=== PATIENT | male | born 1940 | race Hispanic/Latino ===

== ENCOUNTER 2017-12-13 11:19 | Inpatient (IN) | payer OTHER, MEDICARE ==
[~2017-12-13] VITALS: Ht 177.8 cm; Wt 115.3 kg
[2017-12-13] MEDS ORDERED: LACTULOSE 20 GM/30 ML UDCUP PO PRN (12:30)
[2017-12-13] MEDS ORDERED: GUAIFENESIN-DM 200/20 MG 10 ML PO PRN (12:30)
[2017-12-13] MEDS ORDERED: POTASSIUM CHLORIDE 10% ELIXIR 20 MEQ/15 ML UDCUP PO PRN (12:30)
[2017-12-13] MEDS ORDERED: ACETAMINOPHEN 325 MG TAB PO PRN ×2 (12:30)
[2017-12-13] MEDS ORDERED: NITROGLYCERIN 0.4 MG SL TAB SL PRN (12:30)
[2017-12-13] MEDS ORDERED: POTASSIUM CHLORIDE 20MEQ/100ML 100 ML IV PRN (12:30)
[2017-12-13] MEDS ORDERED: LIDOCAINE HCL-MPF 1% 2ML VIAL IVP PRN (12:30)
[2017-12-13] MEDS ORDERED: HYDRALAZINE HCL 20 MG/ML VIAL IV PRN (12:30)
[2017-12-13] MEDS: LEVOFLOXACIN 500 MG/D5W 100 ML 100 ML IV SCH (12:30)
[2017-12-13] MEDS ORDERED: ONDANSETRON HCL 4 MG/2 ML VIAL IV PRN (12:30)
[2017-12-13] MEDS ORDERED: POTASSIUM CHLORIDE 20 MEQ ERTAB PO PRN (12:30)
[2017-12-13] MEDS ORDERED: MAG HYDROX/AL HYDROX/SIMETH ES 30 ML SUSP UDCUP PO PRN (12:30)
[2017-12-13] MEDS ORDERED: MORPHINE SULFATE 2 MG/ML 1ML SYG IV PRN (12:30)
[2017-12-13] MEDS ORDERED: MORPHINE SULFATE 4 MG/1ML SYG IV PRN (12:30)
[2017-12-13 13:05] LABS: HEMATOCRIT 36.4 % (42-54); MEAN CORPUSCULAR HEMOGLOBIN 28.3 pg (27.0-33.0); MEAN CORPUSCULAR HGB CONC 32.7 g/dL (32.0-36.0); MEAN CORPUSCULAR VOLUME 86.6 fL (79-99); PLATELET COUNT (AUTO) 445 K/uL (130-400); RED CELL DISTRIBUTION WIDTH 14.9 % (11.0-15.5); WHITE BLOOD COUNT (AUTO) 13.3 K/uL (4.8-10.8)
[2017-12-13 13:21] LABS: ALBUMIN 2.3 g/dL (3.5-5.0); BILIRUBIN,TOTAL 0.4 mg/dL (0.2-1.0); CREATININE 1.3 mg/dL (0.5-1.5); MAGNESIUM 1.5 mg/dL (1.80-2.40); POTASSIUM 4.7 mmol/L (3.5-5.1); TOTAL PROTEIN, SERUM 8.3 g/dL (6.0-8.3)
[2017-12-13 13:38] LABS: PROTHROMBIN TIME 30.8 SEC (9.6-11.6)
[2017-12-13 13:45] LABS: BAND NEUTROPHILS % (MANUAL) 1 % (0-2); LYMPHOCYTES % (MANUAL) 12 % (22-44); MAN.DIFF COMMENT-IMPRESSION MANUAL DIFFERENTIAL; MONOCYTES % (MANUAL) 5 % (2-9); SEGMENTED NEUTROPHILS % 82 % (40-70)
[2017-12-13] MEDS: CLINDAMYCIN 300 MG/D5W 50 ML 50 ML IV SCH ×2 (13:45→19:45)
[2017-12-13 13:46] LABS: PLATELET MORPHOLOGY COMMENT LARGE PLTS PRESENT
[2017-12-13] MEDS ORDERED: CLINDAMYCIN 300 MG/D5W 50 ML 50 ML IV ONE (14:31)
[2017-12-13] MEDS ORDERED: MAGNESIUM 2GM PREMIX 50ML 50 ML IV ONE (15:26)
[2017-12-13] MEDS: INSULIN HUMULIN R 100 UNIT/ML 3ML SQ SCH ×2 (16:30→21:00)
[2017-12-13] MEDS: GLIPIZIDE 5 MG TABLET PO SCH (16:30)
[2017-12-13] MEDS ORDERED: LEVOFLOXACIN 500 MG/D5W 100 ML 100 ML ONE (16:43)
[2017-12-13] MEDS ORDERED: INSULIN HUMULIN R 100 UNIT/ML 3ML ONE (18:00)
[2017-12-13 22:20] VITALS: BP 124/79
[2017-12-14] MEDS: METOPROLOL TARTRATE 50 MG TAB PO SCH ×3 (00:13→22:21)
[2017-12-14] MEDS: ATORVASTATIN CALCIUM 40 MG TABLET PO SCH ×2 (00:13→22:20)
[2017-12-14] MEDS: ACETAMINOPHEN-CODEINE 300/30MG TAB PO PRN ×2 (00:14→19:50)
[2017-12-14] MEDS ORDERED: CLINDAMYCIN 300 MG/D5W 50 ML 50 ML IV ONE (03:10)
[2017-12-14] MEDS ORDERED: SODIUM CHLORIDE 0.9% 500ML 500 ML IV ONE (03:16)
[2017-12-14] MEDS: CLINDAMYCIN 300 MG/D5W 50 ML 50 ML IV SCH ×4 (03:21→22:20)
[2017-12-14 03:45] VITALS: BP 100/65
[2017-12-14 04:14] LABS: CREATININE 1.3 mg/dL (0.5-1.5); POTASSIUM 4.6 mmol/L (3.5-5.1)
[2017-12-14 04:15] LABS: HEMATOCRIT 32.7 % (42-54); MEAN CORPUSCULAR HEMOGLOBIN 28.5 pg (27.0-33.0); MEAN CORPUSCULAR HGB CONC 32.9 g/dL (32.0-36.0); MEAN CORPUSCULAR VOLUME 86.7 fL (79-99); PLATELET COUNT (AUTO) 392 K/uL (130-400); RED BLOOD CELL COUNT(AUTO) 3.77 MIL/uL (4.50-6.20); RED CELL DISTRIBUTION WIDTH 15.1 % (11.0-15.5); WHITE BLOOD COUNT (AUTO) 12.9 K/uL (4.8-10.8)
[2017-12-14 04:24] LABS: INR 2.63 (0.85-1.15); PARTIAL THROMBOPLASTIN TIME 55.3 SEC (26.3-35.5); PROTHROMBIN TIME 27.1 SEC (9.6-11.6)
[2017-12-14] MEDS ORDERED: METO50TA18 PO (05:50)
[2017-12-14] MEDS ORDERED: METF500T7 PO (05:50)
[2017-12-14] MEDS ORDERED: WARF3TAB59 PO (05:50)
[2017-12-14] MEDS ORDERED: LISI1TAB11 PO (05:50)
[2017-12-14] MEDS ORDERED: GLIP5TAB11 PO (05:50)
[2017-12-14] MEDS ORDERED: ALLO300T2 PO (05:50)
[2017-12-14] MEDS ORDERED: ATOR40TA69 PO (05:50)
[2017-12-14] MEDS: INSULIN HUMULIN R 100 UNIT/ML 3ML SQ SCH ×4 (06:53→22:18)
[2017-12-14] MEDS: GLIPIZIDE 5 MG TABLET PO SCH ×2 (07:00→19:48)
[2017-12-14] MEDS: MAGNESIUM 2GM PREMIX 50ML 50 ML IV SCH (07:00)
[2017-12-14 08:30] VITALS: BP 102/69
[2017-12-14] MEDS: FAMOTIDINE 20MG TAB 20 MG TAB PO SCH (09:07)
[2017-12-14] MEDS: HYDROCHLOROTHIAZIDE 25 MG TABLET PO SCH (09:07)
[2017-12-14] MEDS: ALLOPURINOL 300 MG TABLET PO SCH (09:08)
[2017-12-14] MEDS: LISINOPRIL 20 MG TABLET PO SCH (09:08)
[2017-12-14 12:00] VITALS: BP 102/56
[2017-12-14] MEDS: LEVOFLOXACIN 500 MG/D5W 100 ML 100 ML IV SCH (13:26)
[2017-12-14 15:54] VITALS: BP 106/78
[2017-12-14 20:01] VITALS: BP 103/61
[2017-12-14 23:27] VITALS: BP 99/64
[2017-12-15] MEDS: CLINDAMYCIN 300 MG/D5W 50 ML 50 ML IV SCH ×4 (03:12→21:00)
[2017-12-15 03:53] LABS: HEMATOCRIT 31.6 % (42-54); MEAN CORPUSCULAR HGB CONC 33.7 g/dL (32.0-36.0); MEAN CORPUSCULAR VOLUME 86.1 fL (79-99); PLATELET COUNT (AUTO) 383 K/uL (130-400); RED BLOOD CELL COUNT(AUTO) 3.66 MIL/uL (4.50-6.20); RED CELL DISTRIBUTION WIDTH 15.4 % (11.0-15.5); WHITE BLOOD COUNT (AUTO) 10.7 K/uL (4.8-10.8)
[2017-12-15 04:09] LABS: INR 2.38 (0.85-1.15); PARTIAL THROMBOPLASTIN TIME 53.9 SEC (26.3-35.5); PROTHROMBIN TIME 24.6 SEC (9.6-11.6)
[2017-12-15 04:14] LABS: CREATININE 1.3 mg/dL (0.5-1.5); MAGNESIUM 1.8 mg/dL (1.80-2.40); POTASSIUM 4.6 mmol/L (3.5-5.1)
[2017-12-15 04:17] VITALS: BP 115/62
[2017-12-15] MEDS: INSULIN HUMULIN R 100 UNIT/ML 3ML SQ SCH ×2 (05:27→20:57)
[2017-12-15] MEDS ORDERED: PHYTONADIONE 10 MG/1 ML AMP SQ SCH (07:45)
[2017-12-15 08:00] VITALS: BP 137/98
[2017-12-15] MEDS: LISINOPRIL 20 MG TABLET PO SCH (10:08)
[2017-12-15] MEDS: GLIPIZIDE 5 MG TABLET PO SCH ×2 (10:08→17:33)
[2017-12-15] MEDS: ALLOPURINOL 300 MG TABLET PO SCH (10:09)
[2017-12-15] MEDS: HYDROCHLOROTHIAZIDE 25 MG TABLET PO SCH (10:09)
[2017-12-15] MEDS: FAMOTIDINE 20MG TAB 20 MG TAB PO SCH (10:09)
[2017-12-15] MEDS: METOPROLOL TARTRATE 50 MG TAB PO SCH ×2 (10:09→21:00)
[2017-12-15 11:24] VITALS: BP 112/68
[2017-12-15] MEDS ORDERED: SODIUM CHLORIDE 0.9% 250 ML IV ONE (11:46)
[2017-12-15] MEDS: FUROSEMIDE 10 MG/ML 2ML VIAL IV SCH ×2 (13:48→16:39)
[2017-12-15 16:00] VITALS: BP 101/42
[2017-12-15] MEDS: LEVOFLOXACIN 500 MG/D5W 100 ML 100 ML IV SCH (17:33)
[2017-12-15 18:10] LABS: INR 1.52 (0.85-1.15); PROTHROMBIN TIME 15.8 SEC (9.6-11.6)
[2017-12-15 19:00] VITALS: BP 120/67
[2017-12-15] MEDS: ATORVASTATIN CALCIUM 40 MG TABLET PO SCH (21:00)
[2017-12-16] VITALS (26 sets, daily range): BP systolic 81–127; BP diastolic 52–89
[2017-12-16 02:56] LABS: BILIRUBIN,URINE Negative (NEGATIVE); COLOR,URINE Yellow (YELLOW); GLUCOSE, URINE (UA) Negative (NEGATIVE); KETONES,URINE Negative (NEGATIVE); LEUKOCYTE ESTERASE ,URINE Negative (NEGATIVE); NITRATE,URINE Negative (NEGATIVE); OCCULT BLOOD,URINE Negative (NEGATIVE); PH,URINE 5.5 (5.0-8.0); PROTEIN,URINE Negative (NEGATIVE); UROBILINOGEN,URINE 0.2 mg/dL (0.2-1.0)
[2017-12-16 03:02] LABS: APPEARANCE,URINE CLEAR (CLEAR)
[2017-12-16 03:55] LABS: MEAN CORPUSCULAR HEMOGLOBIN 29.2 pg (27.0-33.0); MEAN CORPUSCULAR HGB CONC 33.8 g/dL (32.0-36.0); MEAN CORPUSCULAR VOLUME 86.3 fL (79-99); PLATELET COUNT (AUTO) 409 K/uL (130-400); RED BLOOD CELL COUNT(AUTO) 3.82 MIL/uL (4.50-6.20); RED CELL DISTRIBUTION WIDTH 15.2 % (11.0-15.5); WHITE BLOOD COUNT (AUTO) 8.9 K/uL (4.8-10.8)
[2017-12-16] MEDS: CLINDAMYCIN 300 MG/D5W 50 ML 50 ML IV SCH ×4 (03:57→17:26)
[2017-12-16] MEDS: GLIPIZIDE 5 MG TABLET PO SCH ×2 (03:58→17:26)
[2017-12-16 04:12] LABS: CREATININE 1.4 mg/dL (0.5-1.5); POTASSIUM 4.4 mmol/L (3.5-5.1)
[2017-12-16] MEDS: INSULIN HUMULIN R 100 UNIT/ML 3ML SQ SCH ×4 (06:06→21:32)
[2017-12-16 06:07] LABS: INR 1.52 (0.85-1.15); PARTIAL THROMBOPLASTIN TIME 41.7 SEC (26.3-35.5); PROTHROMBIN TIME 15.8 SEC (9.6-11.6)
[2017-12-16] MEDS: MAGNESIUM 2GM PREMIX 50ML 50 ML IV SCH (06:51)
[2017-12-16] MEDS: METOPROLOL TARTRATE 50 MG TAB PO SCH ×2 (06:55→21:30)
[2017-12-16] MEDS: SODIUM CHLORIDE 0.9% 1000ML 1,000 ML IV SCH ×3 (08:01→12:13)
[2017-12-16] MEDS: LISINOPRIL 20 MG TABLET PO SCH (08:56)
[2017-12-16] MEDS: HYDROCHLOROTHIAZIDE 25 MG TABLET PO SCH (08:56)
[2017-12-16] MEDS: FAMOTIDINE 20MG TAB 20 MG TAB PO SCH (08:56)
[2017-12-16] MEDS: ALLOPURINOL 300 MG TABLET PO SCH (08:56)
[2017-12-16] MEDS ORDERED: ROCURONIUM BROMIDE 10MG/1ML 5ML VL ONE (09:35)
[2017-12-16] MEDS ORDERED: PROPOFOL 10 MG/ML 20ML VIAL IV ONE (09:35)
[2017-12-16] MEDS ORDERED: LIDOCAINE PF 2% 5ML ABBOJECT ONE (09:35)
[2017-12-16] MEDS ORDERED: PHENYLEPHRINE HCL 10 MG/ML 1ML VIAL IV ONE (09:35)
[2017-12-16] MEDS ORDERED: FENTANYL CITRATE PF 50 MCG/1 ML 2ML VIAL ONE (09:36)
[2017-12-16] MEDS ORDERED: ROPIVACAINE 0.5% 5MG/ML 30ML IJ ONE (09:37)
[2017-12-16] MEDS ORDERED: DEXAMETHASONE SOD PHOSPHATE 4 MG/ML 1ML VIAL ONE (11:44)
[2017-12-16] MEDS ORDERED: SODIUM CHLORIDE 0.9% 10 ML VIAL ONE (11:44)
[2017-12-16] MEDS: LEVOFLOXACIN 500 MG/D5W 100 ML 100 ML IV SCH (12:48)
[2017-12-16] MEDS: ATORVASTATIN CALCIUM 40 MG TABLET PO SCH (21:31)
[2017-12-17] MEDS: CLINDAMYCIN 300 MG/D5W 50 ML 50 ML IV SCH ×4 (02:07→18:55)
[2017-12-17] MEDS: ACETAMINOPHEN-CODEINE 300/30MG TAB PO PRN ×3 (02:17→15:53)
[2017-12-17 03:05] VITALS: BP 111/69
[2017-12-17 03:54] LABS: BASOPHILS % (AUTO) 0.4 % (0.0-5.0); EOSINOPHILS % (AUTO) 0.4 % (0.0-8.0); HEMATOCRIT 30.5 % (42-54); LYMPHOCYTES % (AUTO) 13.3 % (21.0-51.0); MEAN CORPUSCULAR HEMOGLOBIN 29.1 pg (27.0-33.0); MEAN CORPUSCULAR HGB CONC 33.8 g/dL (32.0-36.0); MEAN CORPUSCULAR VOLUME 86.1 fL (79-99); MONOCYTES % (AUTO) 6.3 % (3.0-13.0); NEUTROPHILS % (AUTO) 79.6 % (40.0-77.0); PLATELET COUNT (AUTO) 425 K/uL (130-400); RED BLOOD CELL COUNT(AUTO) 3.55 MIL/uL (4.50-6.20); WHITE BLOOD COUNT (AUTO) 12.3 K/uL (4.8-10.8)
[2017-12-17 03:58] LABS: CREATININE 1.1 mg/dL (0.5-1.5)
[2017-12-17] MEDS: GLIPIZIDE 5 MG TABLET PO SCH ×2 (06:12→15:52)
[2017-12-17] MEDS: INSULIN HUMULIN R 100 UNIT/ML 3ML SQ SCH ×3 (06:13→20:52)
[2017-12-17 08:00] VITALS: BP 124/87
[2017-12-17] MEDS: LISINOPRIL 20 MG TABLET PO SCH (09:32)
[2017-12-17] MEDS: ALLOPURINOL 300 MG TABLET PO SCH (09:32)
[2017-12-17] MEDS: METOPROLOL TARTRATE 50 MG TAB PO SCH ×2 (09:33→20:45)
[2017-12-17] MEDS: HYDROCHLOROTHIAZIDE 25 MG TABLET PO SCH (09:34)
[2017-12-17] MEDS: FAMOTIDINE 20MG TAB 20 MG TAB PO SCH (09:34)
[2017-12-17] MEDS: ENOXAPARIN SODIUM 30 MG/0.3 ML SQ SCH (09:41)
[2017-12-17 11:32] VITALS: BP 123/76
[2017-12-17] MEDS: LEVOFLOXACIN 500 MG/D5W 100 ML 100 ML IV SCH (12:57)
[2017-12-17 15:57] VITALS: BP 98/64
[2017-12-17] MEDS ORDERED: PREGABALIN 25 MG CAP PO SCH (18:00)
[2017-12-17 19:00] VITALS: BP 101/54
[2017-12-17] MEDS: ATORVASTATIN CALCIUM 40 MG TABLET PO SCH (20:44)
[2017-12-17] MEDS: SODIUM CHLORIDE 0.9% 1000ML 1,000 ML IV SCH ×2 (20:44→23:12)
[2017-12-17 23:00] VITALS: BP 82/51
[2017-12-18] MEDS: ACETAMINOPHEN-CODEINE 300/30MG TAB PO PRN ×3 (02:55→18:10)
[2017-12-18] MEDS: CLINDAMYCIN 300 MG/D5W 50 ML 50 ML IV SCH ×2 (02:56→07:37)
[2017-12-18 03:00] VITALS: BP 122/76
[2017-12-18] MEDS: SODIUM CHLORIDE 0.9% 1000ML 1,000 ML IV SCH (03:07)
[2017-12-18 04:03] LABS: BASOPHILS % (AUTO) 0.4 % (0.0-5.0); EOSINOPHILS % (AUTO) 1.3 % (0.0-8.0); HEMATOCRIT 31.1 % (42-54); LYMPHOCYTES % (AUTO) 20.4 % (21.0-51.0); MEAN CORPUSCULAR HEMOGLOBIN 28.9 pg (27.0-33.0); MEAN CORPUSCULAR HGB CONC 33.3 g/dL (32.0-36.0); MEAN CORPUSCULAR VOLUME 86.7 fL (79-99); MONOCYTES % (AUTO) 9.7 % (3.0-13.0); NEUTROPHILS % (AUTO) 68.2 % (40.0-77.0); PLATELET COUNT (AUTO) 392 K/uL (130-400); RED BLOOD CELL COUNT(AUTO) 3.59 MIL/uL (4.50-6.20); RED CELL DISTRIBUTION WIDTH 15.3 % (11.0-15.5); WHITE BLOOD COUNT (AUTO) 10.6 K/uL (4.8-10.8)
[2017-12-18 04:07] LABS: CREATININE 1.1 mg/dL (0.5-1.5); POTASSIUM 3.9 mmol/L (3.5-5.1)
[2017-12-18] MEDS: INSULIN HUMULIN R 100 UNIT/ML 3ML SQ SCH ×4 (06:55→20:22)
[2017-12-18] MEDS: GLIPIZIDE 5 MG TABLET PO SCH ×2 (07:37→17:00)
[2017-12-18 08:00] VITALS: BP 107/66
[2017-12-18] MEDS: FAMOTIDINE 20MG TAB 20 MG TAB PO SCH (10:36)
[2017-12-18] MEDS: HYDROCHLOROTHIAZIDE 25 MG TABLET PO SCH (10:36)
[2017-12-18] MEDS: LISINOPRIL 20 MG TABLET PO SCH (10:37)
[2017-12-18] MEDS: METOPROLOL TARTRATE 50 MG TAB PO SCH ×2 (10:38→20:22)
[2017-12-18] MEDS: ENOXAPARIN SODIUM 30 MG/0.3 ML SQ SCH (10:38)
[2017-12-18] MEDS: ALLOPURINOL 300 MG TABLET PO SCH (10:38)
[2017-12-18 12:00] VITALS: BP 130/76
[2017-12-18] MEDS: LEVOFLOXACIN 500 MG/D5W 100 ML 100 ML IV SCH (12:43)
[2017-12-18] MEDS: HONEY 1 APPL/ML TUBE TP SCH (12:46)
[2017-12-18 16:00] VITALS: BP 97/72
[2017-12-18 19:00] VITALS: BP 94/54
[2017-12-18] MEDS: ATORVASTATIN CALCIUM 40 MG TABLET PO SCH (20:22)
[2017-12-18 23:00] VITALS: BP 93/55
[2017-12-19 03:00] VITALS: BP 104/66
[2017-12-19 05:56] LABS: BASOPHILS % (AUTO) 0.4 % (0.0-5.0); EOSINOPHILS % (AUTO) 1.8 % (0.0-8.0); HEMATOCRIT 30.2 % (42-54); LYMPHOCYTES % (AUTO) 25.2 % (21.0-51.0); MEAN CORPUSCULAR HEMOGLOBIN 29.3 pg (27.0-33.0); MEAN CORPUSCULAR HGB CONC 33.6 g/dL (32.0-36.0); MEAN CORPUSCULAR VOLUME 87.1 fL (79-99); MONOCYTES % (AUTO) 8.3 % (3.0-13.0); NEUTROPHILS % (AUTO) 64.3 % (40.0-77.0); PLATELET COUNT (AUTO) 363 K/uL (130-400); RED BLOOD CELL COUNT(AUTO) 3.46 MIL/uL (4.50-6.20); RED CELL DISTRIBUTION WIDTH 15.4 % (11.0-15.5); WHITE BLOOD COUNT (AUTO) 9.7 K/uL (4.8-10.8)
[2017-12-19] MEDS: ACETAMINOPHEN-CODEINE 300/30MG TAB PO PRN ×3 (05:58→14:16)
[2017-12-19] MEDS: INSULIN HUMULIN R 100 UNIT/ML 3ML SQ SCH ×3 (06:36→16:30)
[2017-12-19 08:00] VITALS: BP 104/80
[2017-12-19] MEDS: HONEY 1 APPL/ML TUBE TP SCH (09:00)
[2017-12-19] MEDS: ALLOPURINOL 300 MG TABLET PO SCH (09:43)
[2017-12-19] MEDS: FAMOTIDINE 20MG TAB 20 MG TAB PO SCH (09:44)
[2017-12-19] MEDS: METOPROLOL TARTRATE 50 MG TAB PO SCH (09:44)
[2017-12-19] MEDS: LISINOPRIL 20 MG TABLET PO SCH (09:44)
[2017-12-19] MEDS: HYDROCHLOROTHIAZIDE 25 MG TABLET PO SCH (09:44)
[2017-12-19] MEDS: ENOXAPARIN SODIUM 30 MG/0.3 ML SQ SCH (09:45)
[2017-12-19] MEDS: GLIPIZIDE 5 MG TABLET PO SCH ×2 (09:49→16:52)
[2017-12-19 11:00] VITALS: BP 111/63
[2017-12-19] MEDS: LEVOFLOXACIN 500 MG/D5W 100 ML 100 ML IV SCH (12:58)
[2017-12-19 16:00] VITALS: BP 100/73
== END 2017-12-19 17:10 | DRG 240 ==
LOC: EDH 11:19 → EDHIP 12:10 → 3BH 20:40
PROVIDERS: ADMIT Internal Medicine; ATTEND Internal Medicine
PROC: 30233K1 Transfusion of Nonautologous Frozen Plasma into Peripheral Vein, Percutaneous Approach (ICD-10-PCS; 2017-12-16)
PROC: 0Y6H0Z1 Detachment at Right Lower Leg, High, Open Approach (ICD-10-PCS; principal; 2017-12-16 09:55)
DX: E11.52 Type 2 diabetes mellitus with diabetic peripheral angiopathy with gangrene (principal); E11.621 Type 2 diabetes mellitus with foot ulcer; E11.42 Type 2 diabetes mellitus with diabetic polyneuropathy; E44.1 Mild protein-calorie malnutrition; M86.8X7 Other osteomyelitis, ankle and foot; L03.115 Cellulitis of right lower limb; L97.519 Non-pressure chronic ulcer of other part of right foot with unspecified severity; I48.91 Unspecified atrial fibrillation; I10 Essential (primary) hypertension; E78.5 Hyperlipidemia, unspecified; Z79.01 Long term (current) use of anticoagulants; E11.69 Type 2 diabetes mellitus with other specified complication; L97.529 Non-pressure chronic ulcer of other part of left foot with unspecified severity; Z96.653 Presence of artificial knee joint, bilateral; Z89.511 Acquired absence of right leg below knee; Z87.891 Personal history of nicotine dependence; Z68.36 Body mass index [BMI] 36.0-36.9, adult; Z83.3 Family history of diabetes mellitus
CPT/HCPCS: 36415; 36430; 71045; 80048; 80053; 81003; 82948; 83735; 84132; 85025; 85027; 85610; 85730; 86156; 86850; 86870; 86900; 86901; 86927; 87040; 87070; 87076; 87186; 88305; 88311; 93005; 97039; A4606; J1100; J1650; J1815; J1940; J1956; J2001; J2370; J2704; J2795; J3010; J3430; J3475; J3490; J7030; J7040; P9017

== ENCOUNTER → 2019-01-25 | Outpatient (CLI) | payer OTHER, MEDICARE ==
[~2019-01-25] MED LIST: ALLO300T2 PO; ATOR40TA69 PO; GLIP5TAB11 PO; LISI1TAB11 PO; METF500T7 PO; METO50TA18 PO; WARF3TAB59 PO
== END | disposition home or self-care (01) ==
LOC: SHCH 08:53
PROVIDERS: ATTEND Internal Medicine Cardiovascular Disease
DX: I11.9 Hypertensive heart disease without heart failure (principal); I73.9 Peripheral vascular disease, unspecified; I48.0 Paroxysmal atrial fibrillation
CPT/HCPCS: 93306; 93925

== ENCOUNTER → 2020-11-13 | Outpatient (CLI) | payer OTHER, MEDICARE ==
[~2020-11-13] MED LIST changes: +LINE600T14 PO; -LISI1TAB11 PO; +LISI1TAB51 PO; +METF-910 PO; -METF500T7 PO; +METO-391 PO; +WARF4TAB72 PO
== END | disposition home or self-care (01) ==
LOC: WHH 10:59
PROVIDERS: ATTEND Podiatrist Foot & Ankle Surgery
DX: E11.621 Type 2 diabetes mellitus with foot ulcer (principal); L97.522 Non-pressure chronic ulcer of other part of left foot with fat layer exposed; L97.512 Non-pressure chronic ulcer of other part of right foot with fat layer exposed; E11.51 Type 2 diabetes mellitus with diabetic peripheral angiopathy without gangrene; E11.42 Type 2 diabetes mellitus with diabetic polyneuropathy; E11.69 Type 2 diabetes mellitus with other specified complication; M86.672 Other chronic osteomyelitis, left ankle and foot; I48.91 Unspecified atrial fibrillation; Z89.611 Acquired absence of right leg above knee
CPT/HCPCS: A6207; G0463

== ENCOUNTER 2020-11-15 11:45 | Day surgery (SDC) | payer OTHER, MEDICARE ==
[2020-11-13 13:51] LABS: BASOPHILS % (AUTO) 0.5 % (0.0-5.0); EOSINOPHILS % (AUTO) 2.3 % (0.0-8.0); HEMATOCRIT 38.6 % (42-54); LYMPHOCYTES % (AUTO) 25.3 % (21.0-51.0); MEAN CORPUSCULAR HEMOGLOBIN 29.8 pg (27.0-33.0); MEAN CORPUSCULAR HGB CONC 32.4 g/dL (32.0-36.0); MEAN CORPUSCULAR VOLUME 91.9 fL (79-99); MONOCYTES % (AUTO) 6.2 % (3.0-13.0); NEUTROPHILS % (AUTO) 65.4 % (40.0-77.0); PLATELET COUNT (AUTO) 399 K/uL (130-400); RED CELL DISTRIBUTION WIDTH 14.5 % (11.0-15.5); WHITE BLOOD COUNT (AUTO) 9.3 K/uL (4.8-10.8)
[2020-11-13 14:00] LABS: INR 1.2 (0.85-1.15); PROTHROMBIN TIME 12.9 SEC (9.6-11.6)
[2020-11-13 14:01] LABS: PARTIAL THROMBOPLASTIN TIME 34.5 SEC (26.3-35.5)
[2020-11-13 14:09] LABS: ALBUMIN 3.3 g/dL (3.5-5.0); BILIRUBIN,TOTAL 0.4 mg/dL (0.2-1.0); CREATININE 2.1 mg/dL (0.5-1.5); POTASSIUM 4.1 mmol/L (3.5-5.1); TOTAL PROTEIN, SERUM 8.3 g/dL (6.0-8.3)
[2020-11-14 15:21] VITALS: BP 89/52
[2020-11-15] VITALS (16 sets, daily range): BP systolic 86–114; BP diastolic 47–65
[~2020-11-15] VITALS: Ht 177.8 cm; Wt 103.3 kg
[~2020-11-15 11:45] MED LIST changes: -METO50TA18 PO; -WARF3TAB59 PO
[2020-11-15] MEDS ORDERED: SODIUM CHLORIDE 0.9% 1000ML 1,000 ML IV ONE (12:12)
[2020-11-15] MEDS ORDERED: BUPIVACAINE/PF 0.5% 30ML VIAL ONE (12:12)
[2020-11-15] MEDS ORDERED: LIDOCAINE HCL 1% 20 ML VIAL ONE (12:12)
[2020-11-15 12:58] LABS: INR 1.18 (0.85-1.15); PROTHROMBIN TIME 12.7 SEC (9.6-11.6)
[2020-11-15] MEDS ORDERED: KETAMINE 50MG/ML SYRINGE 50 MG/ML DISP.SYRIN IV ONE (12:58)
[2020-11-15] MEDS ORDERED: ONDANSETRON HCL 4 MG/2 ML VIAL ONE (13:01)
[2020-11-15] MEDS ORDERED: DEXAMETHASONE SOD PHOSPHATE 4 MG/ML 1ML VIAL ONE (13:02)
[2020-11-15] MEDS ORDERED: MIDAZOLAM HCL 1 MG/ML 2ML VIAL ONE (13:16)
[2020-11-15] MEDS ORDERED: GLYCOPYRROLATE 1 MG/5 ML SYRINGE ONE (13:21)
[2020-11-15] MEDS ORDERED: EPHEDRINE SULFATE 50 MG/ML AMPULE ONE (14:16)
== END 2020-11-15 16:20 ==
LOC: DAH 11:45
PROVIDERS: ATTEND Podiatrist Foot & Ankle Surgery
DX: E11.621 Type 2 diabetes mellitus with foot ulcer (principal); Z20.822 Contact with and (suspected) exposure to COVID-19; M86.672 Other chronic osteomyelitis, left ankle and foot; L97.524 Non-pressure chronic ulcer of other part of left foot with necrosis of bone; E11.22 Type 2 diabetes mellitus with diabetic chronic kidney disease; I13.0 Hypertensive heart and chronic kidney disease with heart failure and stage 1 through stage 4 chronic kidney disease, or unspecified chronic kidney disease; N18.30 Chronic kidney disease, stage 3 unspecified; E11.42 Type 2 diabetes mellitus with diabetic polyneuropathy; E11.59 Type 2 diabetes mellitus with other circulatory complications; E66.01 Morbid (severe) obesity due to excess calories; F32.9 Major depressive disorder, single episode, unspecified; I45.10 Unspecified right bundle-branch block; J44.9 Chronic obstructive pulmonary disease, unspecified; M17.12 Unilateral primary osteoarthritis, left knee; I25.10 Atherosclerotic heart disease of native coronary artery without angina pectoris; E78.5 Hyperlipidemia, unspecified; I48.91 Unspecified atrial fibrillation; M10.9 Gout, unspecified; K21.9 Gastro-esophageal reflux disease without esophagitis; E11.51 Type 2 diabetes mellitus with diabetic peripheral angiopathy without gangrene; Z87.891 Personal history of nicotine dependence; Z90.49 Acquired absence of other specified parts of digestive tract; Z98.890 Other specified postprocedural states; Z83.3 Family history of diabetes mellitus; Z82.49 Family history of ischemic heart disease and other diseases of the circulatory system; Z83.49 Family history of other endocrine, nutritional and metabolic diseases; Z80.9 Family history of malignant neoplasm, unspecified; Z68.32 Body mass index [BMI] 32.0-32.9, adult; Z79.01 Long term (current) use of anticoagulants; Z79.84 Long term (current) use of oral hypoglycemic drugs
CPT/HCPCS: 28111; 36415 ×2; 71045; 73630; 80053; 82948 ×2; 85025; 85610 ×2; 85730; 87070; 87076; 87205; 93005; A4215; A4221; A4222; A4223; A4663; A6260; A6407; A6446; C9803; J1100; J2250; J2405; J3490 ×4; J7030 ×2; U0003

== ENCOUNTER 2020-11-20 09:44 | Inpatient (IN) | payer OTHER, MEDICARE ==
[~2020-11-20] VITALS: Ht 177.8 cm; Wt 101.7 kg
[2020-11-20] VITALS (8 sets, daily range): BP systolic 99–141; BP diastolic 54–85
[2020-11-20] MEDS ORDERED: 0.9% NACL 500ML IV.SOLN 500 ML IV ONE (10:30)
[2020-11-20 10:37] LABS: BASOPHILS % (AUTO) 0.2 % (0.0-5.0); EOSINOPHILS % (AUTO) 2.4 % (0.0-8.0); HEMATOCRIT 37.9 % (42-54); LYMPHOCYTES % (AUTO) 26.6 % (21.0-51.0); MEAN CORPUSCULAR HEMOGLOBIN 29.7 pg (27.0-33.0); MEAN CORPUSCULAR HGB CONC 32.7 g/dL (32.0-36.0); MEAN CORPUSCULAR VOLUME 90.7 fL (79-99); MONOCYTES % (AUTO) 6.1 % (3.0-13.0); NEUTROPHILS % (AUTO) 64.5 % (40.0-77.0); PLATELET COUNT (AUTO) 188 K/uL (130-400); RED BLOOD CELL COUNT(AUTO) 4.18 MIL/uL (4.50-6.20); RED CELL DISTRIBUTION WIDTH 14.5 % (11.0-15.5); WHITE BLOOD COUNT (AUTO) 9.2 K/uL (4.8-10.8)
[2020-11-20 10:48] LABS: ALBUMIN 3.2 g/dL (3.5-5.0); BILIRUBIN,TOTAL 0.5 mg/dL (0.2-1.0); CREATININE 2.5 mg/dL (0.5-1.5); POTASSIUM 4.6 mmol/L (3.5-5.1); TOTAL PROTEIN, SERUM 7.8 g/dL (6.0-8.3)
[2020-11-20 10:59] LABS: INR 2.07 (0.85-1.15); PROTHROMBIN TIME 21.1 SEC (9.6-11.6)
[2020-11-20 11:00] LABS: PARTIAL THROMBOPLASTIN TIME 39.5 SEC (26.3-35.5)
[2020-11-20] MEDS ORDERED: DEXTROSE 50%-WATER 50 ML DISP.SYRIN IV ONE (13:05)
[2020-11-20] MEDS ORDERED: 0.9%NACL 1000ML 1,000 ML IV ONE ×2 (13:46→15:15)
[2020-11-20] MEDS ORDERED: ZOSYN 3.375GM+NS 50ML 50 ML IV ONE (13:56)
[2020-11-20] MEDS ORDERED: ACETAMINOPHEN 650 MG SUPPOSITORY RC PRN (14:00)
[2020-11-20] MEDS ORDERED: ONDANSETRON 4MG INJ IVP PRN (14:00)
[2020-11-20] MEDS ORDERED: DOCUSATE SODIUM 100 MG CAP PO PRN (14:00)
[2020-11-20] MEDS ORDERED: ZOSYN 3.375GM +NS 50ML IV SCH (14:00)
[2020-11-20] MEDS ORDERED: MORPHINE 2 MG SYG IVP PRN (14:00)
[2020-11-20] MEDS ORDERED: GLUCAGON 1MG KIT 1 MG ML IM PRN (14:00)
[2020-11-20] MEDS ORDERED: DEXTROSE 50%-WATER 50 ML DISP.SYRIN IV PRN (14:00)
[2020-11-20] MEDS ORDERED: PHENYLEPHRINE HCL 50 MG in 0.9% NACL 250ML 245 ML IV PRN (14:00)
[2020-11-20] MEDS ORDERED: VANCOMYCIN KIT 1 GM/250 ML IV.KIT IV SCH (14:00)
[2020-11-20] MEDS ORDERED: 0.9%NACL 1000ML 1,000 ML IV SCH ×2 (14:00)
[2020-11-20] MEDS ORDERED: VANCOMYCIN PROTOCOL PER PHARMACY IV SCH (14:00)
[2020-11-20 14:20] LABS: APPEARANCE,URINE Clear (CLEAR); BILIRUBIN,URINE Negative (NEGATIVE); COLOR,URINE Yellow (YELLOW); GLUCOSE, URINE (UA) Negative (NEGATIVE); KETONES,URINE Negative (NEGATIVE); LEUKOCYTE ESTERASE ,URINE Small (NEGATIVE); NITRATE,URINE Negative (NEGATIVE); OCCULT BLOOD,URINE Negative (NEGATIVE); PROTEIN,URINE Negative (NEGATIVE); UROBILINOGEN,URINE 0.2 mg/dL (0.2-1.0)
[2020-11-20 14:29] LABS: BACTERIA,URINE Rare /HPF (None Seen); RBC,URINE 0-1 /HPF (0-1); SQUAMOUS EPITHELIAL CELL,UR Rare /HPF (0-2); TRANSITIONAL EPI CELLS,URINE Few /HPF (None Seen)
[2020-11-20 14:30] LABS: MUCUS,URINE Rare LPF (None Seen)
[2020-11-20 14:46] LABS: CREATINE KINASE, TOTAL 26 U/L (21-232); MYOGLOBIN 47 ng/mL (10-92); TROPONIN I < 0.04 ng/mL (0.00-0.06)
[2020-11-20] MEDS ORDERED: COMPOUND IV REFRIGERATED 1 EACH IVSOLN MISC PRN (15:00)
[2020-11-20] MEDS ORDERED: VANCOMYCIN 1G 1.75 GM in 0.9% NACL 250ML 250 ML IV ONE (15:00)
[2020-11-20 15:03] LABS: AMMONIA < 3 umol/L (11-32)
[2020-11-20] MEDS ORDERED: VANCOMYCIN 1G/250ML KIT 250 ML IV ONE (15:19)
[2020-11-20] MEDS: ENOXAPARIN SODIUM 100 MG/1 ML SQ SCH (16:00)
[2020-11-20] MEDS: INSULIN HUMULIN R 100 UNIT/ML 3ML SQ SCH ×2 (16:30→21:00)
[2020-11-20] MEDS ORDERED: RENAL DOSE IV PRN (17:15)
[2020-11-20] MEDS: METOPROLOL TARTRATE 1 MG/ML 5ML VIAL IV SCH ×2 (17:30→22:33)
[2020-11-20 18:09] LABS: HEMATOCRIT 35.4 % (42-54)
[2020-11-20 18:30] LABS: CHLORIDE,URINE RANDOM 63 mmol/L (110-250); POTASSIUM,URINE RANDOM 30 mmol/L (25-125); SODIUM,URINE RANDOM 38 mmol/l (40-220)
[2020-11-20 18:54] LABS: CREATINE KINASE, TOTAL 45 U/L (21-232); MYOGLOBIN 36 ng/mL (10-92); TROPONIN I < 0.04 ng/mL (0.00-0.06)
[2020-11-20] MEDS: PANTOPRAZOLE 40 MG/VIAL IVP SCH (21:36)
[2020-11-20] MEDS ORDERED: DEXTROSE 5%-WATER 1,000 ML IV ONE (22:18)
[2020-11-20] MEDS: DEXTROSE 5%-WATER 1,000 ML IV SCH (22:33)
[2020-11-20] MEDS ORDERED: HYDR-4060 PO (23:40)
[2020-11-20] MEDS ORDERED: CALC500T7 PO (23:41)
[2020-11-20] MEDS ORDERED: GUAI100S13 PO (23:42)
[2020-11-21] VITALS (20 sets, daily range): BP systolic 94–142; BP diastolic 46–81
[2020-11-21] MEDS: ZOSYN 3.375GM+NS 50ML 50 ML IV SCH ×2 (02:04→15:17)
[2020-11-21 03:37] LABS: BASOPHILS % (AUTO) 0.4 % (0.0-5.0); EOSINOPHILS % (AUTO) 2.8 % (0.0-8.0); HEMATOCRIT 32.3 % (42-54); MEAN CORPUSCULAR HEMOGLOBIN 29.9 pg (27.0-33.0); MEAN CORPUSCULAR HGB CONC 32.8 g/dL (32.0-36.0); MONOCYTES % (AUTO) 5.8 % (3.0-13.0); NEUTROPHILS % (AUTO) 68.9 % (40.0-77.0); PLATELET COUNT (AUTO) 141 K/uL (130-400); RED BLOOD CELL COUNT(AUTO) 3.55 MIL/uL (4.50-6.20); RED CELL DISTRIBUTION WIDTH 14.3 % (11.0-15.5)
[2020-11-21 03:45] LABS: HEMOGLOBIN A1C 6.5 % (4.0-6.0)
[2020-11-21 03:57] LABS: INR 2.56 (0.85-1.15); PROTHROMBIN TIME 25.6 SEC (9.6-11.6)
[2020-11-21 04:00] LABS: CARBON DIOXIDE 22 mmol/L (21-32); CHLORIDE 102 mmol/L (101-111); CREATINE KINASE, TOTAL 20 U/L (21-232); CREATININE 1.6 mg/dL (0.5-1.5); GLOMERULAR FILTR. RATE CALC 45 mL/min (>60); GLUCOSE,RANDOM 105 mg/dL (70-105); MYOGLOBIN 30 ng/mL (10-92); POTASSIUM 3.8 mmol/L (3.5-5.1); SODIUM SERUM 135 mmol/L (136-145); THYROID STIMULATING HORMONE 3.18 uIU/mL (0.36-3.74); TROPONIN I < 0.04 ng/mL (0.00-0.06); UREA NITROGEN, BLOOD 55 mg/dL (7-18)
[2020-11-21 04:03] LABS: % IRON SATURATION 66.6 % (30-44)
[2020-11-21] MEDS: METOPROLOL TARTRATE 1 MG/ML 5ML VIAL IV SCH ×4 (04:41→23:30)
[2020-11-21] MEDS: INSULIN HUMULIN R 100 UNIT/ML 3ML SQ SCH ×4 (07:30→20:59)
[2020-11-21] MEDS: PANTOPRAZOLE 40 MG/VIAL IVP SCH (08:47)
[2020-11-21] MEDS: METOCLOPRAMIDE 10 MG/2 ML VIAL IVP SCH ×3 (08:48→18:01)
[2020-11-21] MEDS ORDERED: ENOXAPARIN SODIUM 40 MG/0.4 ML SYRINGE SQ SCH (09:00)
[2020-11-21] MEDS ORDERED: VANCOMYCIN 750MG + NS 250 ML IV SCH ×2 (09:00)
[2020-11-21] MEDS: MAGNESIUM 2GM PREMIX 50ML 50 ML IV SCH (10:00)
[2020-11-21 10:22] LABS: HEMATOCRIT 32.6 % (42-54)
[2020-11-21] MEDS: DEXTROSE 5%-WATER 1,000 ML IV SCH ×2 (12:06→15:18)
[2020-11-21] MEDS: ENOXAPARIN SODIUM 100 MG/1 ML SQ SCH (15:19)
[2020-11-21 18:16] LABS: HEMATOCRIT 30.6 % (42-54)
[2020-11-21] MEDS: FAMOTIDINE 20MG VIAL IV SCH (20:54)
[2020-11-22] MEDS: ZOSYN 3.375GM+NS 50ML 50 ML IV SCH ×2 (01:43→14:49)
[2020-11-22] MEDS: HYDROCODONE/ACETAMINOPHEN 5/325 MG TAB PO PRN (02:06)
[2020-11-22 03:28] VITALS: BP 120/86
[2020-11-22] MEDS: METOPROLOL TARTRATE 1 MG/ML 5ML VIAL IV SCH ×4 (05:30→23:30)
[2020-11-22 05:43] LABS: BASOPHILS % (AUTO) 0.3 % (0.0-5.0); EOSINOPHILS % (AUTO) 0.6 % (0.0-8.0); HEMATOCRIT 30.1 % (42-54); LYMPHOCYTES % (AUTO) 12.7 % (21.0-51.0); MEAN CORPUSCULAR HEMOGLOBIN 29.6 pg (27.0-33.0); MEAN CORPUSCULAR HGB CONC 33.6 g/dL (32.0-36.0); MEAN CORPUSCULAR VOLUME 88.3 fL (79-99); MONOCYTES % (AUTO) 8.6 % (3.0-13.0); NEUTROPHILS % (AUTO) 77.4 % (40.0-77.0); PLATELET COUNT (AUTO) 114 K/uL (130-400); RED BLOOD CELL COUNT(AUTO) 3.41 MIL/uL (4.50-6.20); RED CELL DISTRIBUTION WIDTH 14.1 % (11.0-15.5); WHITE BLOOD COUNT (AUTO) 11.8 K/uL (4.8-10.8)
[2020-11-22 06:20] LABS: CREATININE 1.5 mg/dL (0.5-1.5); MAGNESIUM 1.4 mg/dL (1.80-2.40); PHOSPHORUS 2.4 mg/dL (2.5-4.9); POTASSIUM 3.7 mmol/L (3.5-5.1)
[2020-11-22] MEDS: INSULIN HUMULIN R 100 UNIT/ML 3ML SQ SCH ×4 (06:41→22:58)
[2020-11-22] MEDS: MAGNESIUM 2GM PREMIX 50ML 50 ML IV SCH (06:48)
[2020-11-22] MEDS: METOCLOPRAMIDE 10 MG/2 ML VIAL IVP SCH ×3 (06:48→17:17)
[2020-11-22 08:00] VITALS: BP 118/66
[2020-11-22 12:00] VITALS: BP 145/77
[2020-11-22] MEDS ORDERED: VANCOMYCIN 1G 1.25 GM in 0.9% NACL 250ML 250 ML IV SCH (12:15)
[2020-11-22] MEDS ORDERED: VANCOMYCIN 1G 1.5 GM in 0.9% NACL 250ML 250 ML IV SCH (12:15)
[2020-11-22] MEDS: DEXTROSE 5%-WATER 1,000 ML IV SCH (14:15)
[2020-11-22 15:44] VITALS: BP 139/55
[2020-11-22 20:20] VITALS: BP 125/66
[2020-11-22] MEDS: FAMOTIDINE 20MG VIAL IV SCH (22:31)
[2020-11-22] MEDS ORDERED: CALCIUM CARB 500MG CHEW TAB PO SCH (22:45)
[2020-11-23 00:20] VITALS: BP 112/68
[2020-11-23] MEDS: ZOSYN 3.375GM+NS 50ML 50 ML IV SCH ×2 (02:40→13:59)
[2020-11-23 04:20] VITALS: BP 113/66
[2020-11-23] MEDS: METOPROLOL TARTRATE 1 MG/ML 5ML VIAL IV SCH ×4 (05:30→23:30)
[2020-11-23] MEDS: METOCLOPRAMIDE 10 MG/2 ML VIAL IVP SCH ×3 (06:02→17:42)
[2020-11-23] MEDS: DEXTROSE 5%-WATER 1,000 ML IV SCH ×2 (06:02→16:55)
[2020-11-23 06:27] LABS: HEMATOCRIT 28.8 % (42-54); MEAN CORPUSCULAR HEMOGLOBIN 29.4 pg (27.0-33.0); MEAN CORPUSCULAR HGB CONC 33.7 g/dL (32.0-36.0); MEAN CORPUSCULAR VOLUME 87.3 fL (79-99); RED BLOOD CELL COUNT(AUTO) 3.3 MIL/uL (4.50-6.20); WHITE BLOOD COUNT (AUTO) 9.8 K/uL (4.8-10.8)
[2020-11-23 06:34] LABS: CREATININE 1.1 mg/dL (0.5-1.5); MAGNESIUM 1.2 mg/dL (1.80-2.40); POTASSIUM 3.3 mmol/L (3.5-5.1)
[2020-11-23] MEDS: INSULIN HUMULIN R 100 UNIT/ML 3ML SQ SCH ×4 (06:45→20:43)
[2020-11-23] MEDS: MAGNESIUM 2GM PREMIX 50ML 50 ML IV SCH ×2 (07:36→09:02)
[2020-11-23 08:10] VITALS: BP_SYST 126; BP_SYST 148; BP_DIAS 79; BP_DIAS 93
[2020-11-23] MEDS: VANCOMYCIN 750MG + NS 250 ML IV SCH ×4 (08:53→22:02)
[2020-11-23] MEDS ORDERED: LIDOCAINE HCL-MPF 1% 2ML VIAL IV PRN (12:15)
[2020-11-23] MEDS ORDERED: KCL 20 MEQ ERTAB PO PRN (12:15)
[2020-11-23 12:18] VITALS: BP 119/72
[2020-11-23] MEDS: HYDROCODONE/ACETAMINOPHEN 5/325 MG TAB PO PRN (14:00)
[2020-11-23] MEDS: POTASSIUM CHLORIDE 20MEQ/100ML 100 ML IV PRN (14:00)
[2020-11-23 17:21] VITALS: BP 130/66
[2020-11-23 20:12] VITALS: BP 107/68
[2020-11-23] MEDS: ALLOPURINOL 300 MG TABLET PO SCH (20:32)
[2020-11-23] MEDS: ATORVASTATIN 40 MG TABLET PO SCH (20:32)
[2020-11-23] MEDS: FAMOTIDINE 20MG VIAL IV SCH (20:32)
[2020-11-23] MEDS ORDERED: METOPROLOL SUCCINATE 50 MG TAB.SR.24H PO SCH (21:00)
[2020-11-24] VITALS (7 sets, daily range): BP systolic 124–146; BP diastolic 54–78
[2020-11-24] MEDS: ACETAMINOPHEN 325 MG TAB PO PRN (03:13)
[2020-11-24] MEDS: ZOSYN 3.375GM+NS 50ML 50 ML IV SCH ×2 (03:13→15:08)
[2020-11-24] MEDS: METOPROLOL TARTRATE 1 MG/ML 5ML VIAL IV SCH ×4 (05:30→23:30)
[2020-11-24] MEDS: DEXTROSE 5%-WATER 1,000 ML IV SCH (06:13)
[2020-11-24] MEDS: METOCLOPRAMIDE 10 MG/2 ML VIAL IVP SCH ×3 (06:13→18:05)
[2020-11-24] MEDS: INSULIN HUMULIN R 100 UNIT/ML 3ML SQ SCH ×4 (06:27→21:00)
[2020-11-24 06:34] LABS: BASOPHILS % (AUTO) 0.4 % (0.0-5.0); HEMATOCRIT 26.7 % (42-54); LYMPHOCYTES % (AUTO) 14.5 % (21.0-51.0); MEAN CORPUSCULAR HEMOGLOBIN 29.5 pg (27.0-33.0); MEAN CORPUSCULAR HGB CONC 33.7 g/dL (32.0-36.0); MEAN CORPUSCULAR VOLUME 87.5 fL (79-99); MONOCYTES % (AUTO) 14.6 % (3.0-13.0); PLATELET COUNT (AUTO) 75 K/uL (130-400); RED BLOOD CELL COUNT(AUTO) 3.05 MIL/uL (4.50-6.20); WHITE BLOOD COUNT (AUTO) 11.2 K/uL (4.8-10.8)
[2020-11-24 06:43] LABS: CREATININE 1.1 mg/dL (0.5-1.5); MAGNESIUM 1.5 mg/dL (1.80-2.40); POTASSIUM 3.2 mmol/L (3.5-5.1)
[2020-11-24] MEDS ORDERED: POTASSIUM CHLORIDE 20MEQ/100ML 100 ML IV PRN (09:15)
[2020-11-24] MEDS ORDERED: MAGNESIUM 2GM PREMIX 50ML 50 ML IV PRN (09:15)
[2020-11-24] MEDS ORDERED: KCL 20 MEQ ERTAB PO PRN (09:15)
[2020-11-24] MEDS ORDERED: LIDOCAINE HCL-MPF 1% 2ML VIAL IV PRN (09:15)
[2020-11-24] MEDS ORDERED: POTASSIUM CHLORIDE 10% ELIXIR 20 MEQ/15 ML UDCUP PO PRN (09:15)
[2020-11-24] MEDS: POTASSIUM CHLORIDE 20MEQ/100ML 100 ML IV PRN ×3 (09:34→15:10)
[2020-11-24] MEDS: MAGNESIUM 2GM PREMIX 50ML 50 ML IV SCH (09:46)
[2020-11-24] MEDS: VANCOMYCIN 750MG + NS 250 ML IV SCH ×4 (11:51→21:19)
[2020-11-24] MEDS: 0.9%NACL 1000ML 1,000 ML IV SCH (18:05)
[2020-11-24] MEDS: ATORVASTATIN 40 MG TABLET PO SCH (21:18)
[2020-11-24] MEDS: FAMOTIDINE 20MG VIAL IV SCH (21:18)
[2020-11-24] MEDS: ALLOPURINOL 300 MG TABLET PO SCH (21:18)
[2020-11-25] VITALS (7 sets, daily range): BP systolic 115–141; BP diastolic 64–94
[2020-11-25] MEDS: ZOSYN 3.375GM+NS 50ML 50 ML IV SCH ×2 (02:12→13:17)
[2020-11-25] MEDS: 0.9%NACL 1000ML 1,000 ML IV SCH ×2 (05:20→18:49)
[2020-11-25] MEDS: METOPROLOL TARTRATE 1 MG/ML 5ML VIAL IV SCH ×5 (05:30→23:21)
[2020-11-25] MEDS: INSULIN HUMULIN R 100 UNIT/ML 3ML SQ SCH ×3 (05:47→20:53)
[2020-11-25] MEDS: METOCLOPRAMIDE 10 MG/2 ML VIAL IVP SCH ×3 (05:53→18:48)
[2020-11-25 06:08] LABS: BASOPHILS % (AUTO) 0.3 % (0.0-5.0); EOSINOPHILS % (AUTO) 2.2 % (0.0-8.0); HEMATOCRIT 27.2 % (42-54); LYMPHOCYTES % (AUTO) 14.4 % (21.0-51.0); MEAN CORPUSCULAR HEMOGLOBIN 29.8 pg (27.0-33.0); MEAN CORPUSCULAR HGB CONC 34.2 g/dL (32.0-36.0); MEAN CORPUSCULAR VOLUME 87.2 fL (79-99); MONOCYTES % (AUTO) 14.2 % (3.0-13.0); NEUTROPHILS % (AUTO) 68.5 % (40.0-77.0); PLATELET COUNT (AUTO) 91 K/uL (130-400); RED BLOOD CELL COUNT(AUTO) 3.12 MIL/uL (4.50-6.20); RED CELL DISTRIBUTION WIDTH 13.9 % (11.0-15.5); WHITE BLOOD COUNT (AUTO) 9.6 K/uL (4.8-10.8)
[2020-11-25 06:25] LABS: MAGNESIUM 1.3 mg/dL (1.80-2.40); POTASSIUM 3.3 mmol/L (3.5-5.1)
[2020-11-25] MEDS: VANCOMYCIN 750MG + NS 250 ML IV SCH ×4 (09:21→20:48)
[2020-11-25] MEDS: MAGNESIUM 2GM PREMIX 50ML 50 ML IV SCH (09:33)
[2020-11-25] MEDS: POTASSIUM CHLORIDE 10% ELIXIR 20 MEQ/15 ML UDCUP PO PRN ×2 (09:38→20:29)
[2020-11-25] MEDS ORDERED: METOPROLOL TARTRATE 1 MG/ML 5ML VIAL IV SCH (10:54)
[2020-11-25] MEDS: HYDROCODONE/ACETAMINOPHEN 5/325 MG TAB PO PRN (13:18)
[2020-11-25] MEDS: FAMOTIDINE 20MG VIAL IV SCH (20:28)
[2020-11-25] MEDS: ALLOPURINOL 300 MG TABLET PO SCH (20:29)
[2020-11-25] MEDS: ATORVASTATIN 40 MG TABLET PO SCH (20:29)
[2020-11-25] MEDS: METOPROLOL TARTRATE 25 MG TAB PO SCH (20:30)
[2020-11-25] MEDS ORDERED: LORAZEPAM 2 MG/ML 1 ML VIAL IVP ONE (21:00)
[2020-11-26] MEDS: ZOSYN 3.375GM+NS 50ML 50 ML IV SCH ×2 (00:59→15:06)
[2020-11-26 04:18] VITALS: BP 114/66
[2020-11-26] MEDS: METOPROLOL TARTRATE 1 MG/ML 5ML VIAL IV SCH ×3 (05:04→17:09)
[2020-11-26] MEDS: METOCLOPRAMIDE 10 MG/2 ML VIAL IVP SCH ×3 (05:42→16:38)
[2020-11-26] MEDS: INSULIN HUMULIN R 100 UNIT/ML 3ML SQ SCH ×4 (05:42→21:00)
[2020-11-26 05:45] LABS: BASOPHILS % (AUTO) 0.2 % (0.0-5.0); EOSINOPHILS % (AUTO) 2.8 % (0.0-8.0); HEMATOCRIT 27.5 % (42-54); LYMPHOCYTES % (AUTO) 18.3 % (21.0-51.0); MEAN CORPUSCULAR HEMOGLOBIN 29.5 pg (27.0-33.0); MEAN CORPUSCULAR HGB CONC 33.5 g/dL (32.0-36.0); MEAN CORPUSCULAR VOLUME 88.1 fL (79-99); MONOCYTES % (AUTO) 11.8 % (3.0-13.0); NEUTROPHILS % (AUTO) 66.2 % (40.0-77.0); PLATELET COUNT (AUTO) 145 K/uL (130-400); RED BLOOD CELL COUNT(AUTO) 3.12 MIL/uL (4.50-6.20); WHITE BLOOD COUNT (AUTO) 8.9 K/uL (4.8-10.8)
[2020-11-26] MEDS: 0.9%NACL 1000ML 1,000 ML IV SCH (05:48)
[2020-11-26 06:07] LABS: CARBON DIOXIDE 23 mmol/L (21-32); CHLORIDE 104 mmol/L (101-111); CREATININE 1.1 mg/dL (0.5-1.5); GLOMERULAR FILTR. RATE CALC 69 mL/min (>60); GLUCOSE,RANDOM 122 mg/dL (70-105); POTASSIUM 3.4 mmol/L (3.5-5.1); SODIUM SERUM 136 mmol/L (136-145); THYROID STIMULATING HORMONE 2.89 uIU/mL (0.36-3.74); UREA NITROGEN, BLOOD 10 mg/dL (7-18)
[2020-11-26 06:08] LABS: AMMONIA < 10 umol/L (11-32)
[2020-11-26] MEDS: MAGNESIUM 2GM PREMIX 50ML 50 ML IV SCH (06:29)
[2020-11-26] MEDS: POTASSIUM CHLORIDE 10% ELIXIR 20 MEQ/15 ML UDCUP PO PRN ×2 (06:30→15:10)
[2020-11-26 08:06] VITALS: BP 121/77
[2020-11-26] MEDS: METOPROLOL TARTRATE 25 MG TAB PO SCH ×3 (08:37→21:03)
[2020-11-26] MEDS: VANCOMYCIN 750MG + NS 250 ML IV SCH ×4 (08:37→21:03)
[2020-11-26 11:50] VITALS: BP 109/77
[2020-11-26 11:54] LABS: APPEARANCE,URINE CLOUDY (CLEAR); BILIRUBIN,URINE SMALL (NEGATIVE); COLOR,URINE ORANGE (YELLOW); GLUCOSE, URINE (UA) NEGATIVE (NEGATIVE); KETONES,URINE NEGATIVE (NEGATIVE); LEUKOCYTE ESTERASE ,URINE SMALL (NEGATIVE); NITRATE,URINE NEGATIVE (NEGATIVE); OCCULT BLOOD,URINE LARGE (NEGATIVE); PROTEIN,URINE 30 mg/dL (NEGATIVE); UROBILINOGEN,URINE 0.2 mg/dL (0.2-1.0)
[2020-11-26 12:09] LABS: RBC,URINE TNTC /HPF (0-1)
[2020-11-26 12:11] LABS: BACTERIA,URINE Few /HPF (None Seen); SQUAMOUS EPITHELIAL CELL,UR 0-2 /HPF (0-2); YEAST,URINE BUDDING Few /HPF (None Seen)
[2020-11-26 12:11] LABS: INR 1.19 (0.85-1.15); PROTHROMBIN TIME 12.8 SEC (9.6-11.6)
[2020-11-26 12:13] LABS: PARTIAL THROMBOPLASTIN TIME 33.6 SEC (26.3-35.5)
[2020-11-26] MEDS ORDERED: CEFTRIAXONE 1G VIAL IVP SCH (16:00)
[2020-11-26 16:28] VITALS: BP 141/76
[2020-11-26] MEDS ORDERED: LACTULOSE 20 GM/30 ML UDCUP PO PRN (20:00)
[2020-11-26 20:11] VITALS: BP 117/73
[2020-11-26] MEDS ORDERED: LACTULOSE 20 GM/30 ML UDCUP PO SCH (21:00)
[2020-11-26] MEDS: FAMOTIDINE 20MG VIAL IV SCH (21:03)
[2020-11-26] MEDS: ALLOPURINOL 300 MG TABLET PO SCH (21:03)
[2020-11-26] MEDS: ATORVASTATIN 40 MG TABLET PO SCH (21:03)
[2020-11-26 23:34] VITALS: BP 121/74
[2020-11-27] MEDS: METOPROLOL TARTRATE 1 MG/ML 5ML VIAL IV SCH ×5 (00:29→23:30)
[2020-11-27] MEDS: ZOSYN 3.375GM+NS 50ML 50 ML IV SCH ×2 (03:18→15:00)
[2020-11-27 04:07] VITALS: BP 125/80
[2020-11-27 05:17] LABS: HEMATOCRIT 27.1 % (42-54); MEAN CORPUSCULAR HEMOGLOBIN 30.5 pg (27.0-33.0); MEAN CORPUSCULAR HGB CONC 34.3 g/dL (32.0-36.0); MEAN CORPUSCULAR VOLUME 88.9 fL (79-99); RED BLOOD CELL COUNT(AUTO) 3.05 MIL/uL (4.50-6.20); RED CELL DISTRIBUTION WIDTH 14.3 % (11.0-15.5); WHITE BLOOD COUNT (AUTO) 10.4 K/uL (4.8-10.8)
[2020-11-27 05:27] LABS: MAGNESIUM 1.4 mg/dL (1.80-2.40); POTASSIUM 3.4 mmol/L (3.5-5.1)
[2020-11-27] MEDS: METOCLOPRAMIDE 10 MG/2 ML VIAL IVP SCH ×3 (07:30→19:32)
[2020-11-27] MEDS: INSULIN HUMULIN R 100 UNIT/ML 3ML SQ SCH ×4 (07:30→20:53)
[2020-11-27 07:59] VITALS: BP 140/93
[2020-11-27] MEDS: METOPROLOL TARTRATE 25 MG TAB PO SCH ×3 (10:20→19:53)
[2020-11-27] MEDS: POTASSIUM CHLORIDE 10% ELIXIR 20 MEQ/15 ML UDCUP PO PRN (10:29)
[2020-11-27 11:16] VITALS: BP 133/89
[2020-11-27] MEDS: VANCOMYCIN 750MG + NS 250 ML IV SCH ×4 (11:39→19:53)
[2020-11-27] MEDS: 0.9%NACL 1000ML 1,000 ML IV SCH ×2 (12:21→23:36)
[2020-11-27 13:24] LABS: INR 1.16 (0.85-1.15); PROTHROMBIN TIME 12.5 SEC (9.6-11.6)
[2020-11-27] MEDS: MAGNESIUM OXIDE 400 MG TABLET PO SCH ×2 (14:45→19:53)
[2020-11-27] MEDS ORDERED: MAGNESIUM OXIDE 400 MG TABLET PO ONE (14:46)
[2020-11-27] MEDS: ENOXAPARIN SODIUM 40 MG/0.4 ML SYRINGE SQ SCH (14:59)
[2020-11-27 16:28] VITALS: BP 119/77
[2020-11-27] MEDS: ALLOPURINOL 300 MG TABLET PO SCH (19:53)
[2020-11-27] MEDS: FAMOTIDINE 20MG VIAL IV SCH (19:53)
[2020-11-27] MEDS: ATORVASTATIN 40 MG TABLET PO SCH (19:53)
[2020-11-27 20:08] VITALS: BP 112/76
[2020-11-27] MEDS: ACETAMINOPHEN 325 MG TAB PO PRN (22:33)
[2020-11-28 00:12] VITALS: BP 113/60
[2020-11-28] MEDS: ZOSYN 3.375GM+NS 50ML 50 ML IV SCH ×2 (01:11→14:11)
[2020-11-28 04:20] VITALS: BP 124/74
[2020-11-28] MEDS ORDERED: HYDROCODONE/ACETAMINOPHEN 5/325 MG TAB ONE (04:23)
[2020-11-28] MEDS: METOPROLOL TARTRATE 1 MG/ML 5ML VIAL IV SCH ×3 (05:30→17:30)
[2020-11-28] MEDS ORDERED: HYDROCODONE/ACETAMINOPHEN 5/325 MG TAB PO PRN (05:45)
[2020-11-28 06:24] LABS: HEMATOCRIT 24.9 % (42-54); MEAN CORPUSCULAR HEMOGLOBIN 29.1 pg (27.0-33.0); MEAN CORPUSCULAR HGB CONC 32.9 g/dL (32.0-36.0); MEAN CORPUSCULAR VOLUME 88.3 fL (79-99); RED BLOOD CELL COUNT(AUTO) 2.82 MIL/uL (4.50-6.20); RED CELL DISTRIBUTION WIDTH 14.3 % (11.0-15.5); WHITE BLOOD COUNT (AUTO) 11.3 K/uL (4.8-10.8)
[2020-11-28] MEDS: INSULIN HUMULIN R 100 UNIT/ML 3ML SQ SCH ×3 (06:27→16:30)
[2020-11-28] MEDS: METOCLOPRAMIDE 10 MG/2 ML VIAL IVP SCH ×3 (06:28→17:00)
[2020-11-28 06:44] LABS: ALBUMIN 1.9 g/dL (3.5-5.0); BILIRUBIN,TOTAL 0.6 mg/dL (0.2-1.0); CREATININE 1.6 mg/dL (0.5-1.5); MAGNESIUM 1.4 mg/dL (1.80-2.40); PHOSPHORUS 3.5 mg/dL (2.5-4.9); POTASSIUM 3.2 mmol/L (3.5-5.1)
[2020-11-28] MEDS: POTASSIUM CHLORIDE 10% ELIXIR 20 MEQ/15 ML UDCUP PO PRN (06:53)
[2020-11-28] MEDS: MAGNESIUM 2GM PREMIX 50ML 50 ML IV SCH (06:54)
[2020-11-28] MEDS: METOPROLOL TARTRATE 25 MG TAB PO SCH ×2 (08:29→14:11)
[2020-11-28] MEDS: MAGNESIUM OXIDE 400 MG TABLET PO SCH (08:29)
[2020-11-28] MEDS: ENOXAPARIN SODIUM 40 MG/0.4 ML SYRINGE SQ SCH (08:31)
[2020-11-28 08:35] VITALS: BP 114/73
[2020-11-28] MEDS: VANCOMYCIN 750MG + NS 250 ML IV SCH ×2 (09:00)
[2020-11-28 11:19] VITALS: BP 107/65
[2020-11-28 16:18] VITALS: BP 117/69
[2020-11-28 17:30] VITALS: BP 117/69
[2020-12-13] MEDS ORDERED: FOLI0.8T22 PO (22:39)
[2020-12-13] MEDS ORDERED: FAMO20TA8 PO (22:39)
[2020-12-13] MEDS ORDERED: LACT10SO9 PO (22:39)
[2020-12-13] MEDS ORDERED: ASCO500T10 PO (22:39)
[2020-12-13] MEDS ORDERED: DOCU100C33 PO (22:39)
[2020-12-13] MEDS ORDERED: ACET-3194 PO (22:39)
[2020-12-13] MEDS ORDERED: METO-391 PO (22:39)
[2020-12-13] MEDS ORDERED: VANC750P13 IV (22:39)
[2020-12-13] MEDS ORDERED: PIPE3.379 IV (22:39)
[2020-12-13] MEDS ORDERED: MAGN400C PO (22:39)
[2020-12-13] MEDS ORDERED: CALC-125 PO (22:39)
[2020-12-13] MEDS ORDERED: METF-527 PO (22:39)
[2020-12-13] MEDS ORDERED: WARF4TAB72 PO (22:39)
[2020-12-13] MEDS ORDERED: GLUC1VIA14 IJ (22:39)
[2020-12-13] MEDS ORDERED: ONDA4TAB10 PO (22:39)
[2020-12-17] MEDS ORDERED: AMOX-426 PO (16:48)
[2020-12-17] MEDS ORDERED: APIX5TAB PO (16:48)
[2021-01-09] MEDS ORDERED: GLIP5TAB11 PO (02:56)
[2021-01-09] MEDS ORDERED: LISI1TAB49 PO (02:56)
[2021-01-15] MEDS ORDERED: TAMS-1 PO (16:30)
[2021-01-15] MEDS ORDERED: CEPH750C9 PO (16:30)
== END 2020-11-28 19:15 | DRG 682 ==
LOC: EDH 09:44 → EDHIP 13:52 → 2CH 19:56 → 3AH 11-21 13:53
PROVIDERS: ADMIT Internal Medicine Critical Care Medicine; ATTEND Internal Medicine Critical Care Medicine
PROC: 05HB33Z Insertion of Infusion Device into Right Basilic Vein, Percutaneous Approach (ICD-10-PCS; 2020-11-20)
PROC: 02HV33Z Insertion of Infusion Device into Superior Vena Cava, Percutaneous Approach (ICD-10-PCS; principal; 2020-11-27)
DX: N17.9 Acute kidney failure, unspecified (principal); R57.1 Hypovolemic shock; I48.20 Chronic atrial fibrillation, unspecified; K92.1 Melena; E87.1 Hypo-osmolality and hyponatremia; N39.0 Urinary tract infection, site not specified; I42.9 Cardiomyopathy, unspecified; E86.0 Dehydration; E11.51 Type 2 diabetes mellitus with diabetic peripheral angiopathy without gangrene; L97.529 Non-pressure chronic ulcer of other part of left foot with unspecified severity; E11.40 Type 2 diabetes mellitus with diabetic neuropathy, unspecified; E11.21 Type 2 diabetes mellitus with diabetic nephropathy; E11.621 Type 2 diabetes mellitus with foot ulcer; D64.9 Anemia, unspecified; E03.9 Hypothyroidism, unspecified; E11.69 Type 2 diabetes mellitus with other specified complication; E78.5 Hyperlipidemia, unspecified; E83.42 Hypomagnesemia; E87.6 Hypokalemia; I25.10 Atherosclerotic heart disease of native coronary artery without angina pectoris; K21.9 Gastro-esophageal reflux disease without esophagitis; L08.9 Local infection of the skin and subcutaneous tissue, unspecified; E87.8 Other disorders of electrolyte and fluid balance, not elsewhere classified; M13.0 Polyarthritis, unspecified; Z96.652 Presence of left artificial knee joint; N18.9 Chronic kidney disease, unspecified; E11.22 Type 2 diabetes mellitus with diabetic chronic kidney disease; I12.9 Hypertensive chronic kidney disease with stage 1 through stage 4 chronic kidney disease, or unspecified chronic kidney disease; R31.0 Gross hematuria; R63.3 Feeding difficulties; Z89.511 Acquired absence of right leg below knee; Z79.01 Long term (current) use of anticoagulants; Z86.73 Personal history of transient ischemic attack (TIA), and cerebral infarction without residual deficits; Z79.2 Long term (current) use of antibiotics; Z87.11 Personal history of peptic ulcer disease; Z87.891 Personal history of nicotine dependence
CPT/HCPCS: 36415; 70450; 71045; 73630; 73700; 74176; 76770; 80048; 80053; 80202; 81001; 82140; 82436; 82550; 82948; 83036; 83540; 83550; 83605; 83735; 83874; 83935; 84100; 84133; 84300; 84443; 84484; 85014; 85018; 85025; 85027; 85610; 85730; 87040; 87088; 93005; 97039; C1894; C9113; G0378; J0696; J1650; J1815; J2060; J2370; J2543; J2765; J3370; J3475; J3480; J3490; J7030; J7040; J7050; J7070

== ENCOUNTER → 2020-12-04 | Outpatient (CLI) | payer OTHER, MEDICARE ==
[~2020-12-04] MED LIST changes: +ACET-3194 PO; +ASCO500T10 PO; +CALC-125 PO; +DOCU100C33 PO; +FAMO20TA8 PO; +FOLI0.8T22 PO; -GLIP5TAB11 PO; +GLUC1VIA14 IJ; +LACT10SO9 PO; -LINE600T14 PO; -LISI1TAB51 PO; +MAGN400C PO; +METF-527 PO; -METF-910 PO; +ONDA4TAB10 PO; +PIPE3.379 IV; +VANC750P13 IV
== END | disposition home or self-care (01) ==
LOC: WHH 10:00
PROVIDERS: ATTEND Podiatrist Foot & Ankle Surgery
DX: T87.89 Other complications of amputation stump (principal); E11.621 Type 2 diabetes mellitus with foot ulcer; L97.522 Non-pressure chronic ulcer of other part of left foot with fat layer exposed; L97.512 Non-pressure chronic ulcer of other part of right foot with fat layer exposed; E11.51 Type 2 diabetes mellitus with diabetic peripheral angiopathy without gangrene; E11.42 Type 2 diabetes mellitus with diabetic polyneuropathy; E11.69 Type 2 diabetes mellitus with other specified complication; M86.672 Other chronic osteomyelitis, left ankle and foot; I48.91 Unspecified atrial fibrillation; Z89.611 Acquired absence of right leg above knee; Y83.5 Amputation of limb(s) as the cause of abnormal reaction of the patient, or of later complication, without mention of misadventure at the time of the procedure
CPT/HCPCS: 11042; A4450; A6209

== ENCOUNTER → 2020-12-11 | Outpatient (CLI) | payer OTHER, MEDICARE ==
[~2020-12-11] MED LIST changes: +AMOX-426 PO; +APIX5TAB PO; +LIDOCAINE HCL 2% JELLY 5 ML TP ONE
== END | disposition home or self-care (01) ==
LOC: WHH 09:25
PROVIDERS: ATTEND Podiatrist Foot & Ankle Surgery
DX: E11.621 Type 2 diabetes mellitus with foot ulcer (principal); L97.522 Non-pressure chronic ulcer of other part of left foot with fat layer exposed; L97.512 Non-pressure chronic ulcer of other part of right foot with fat layer exposed; E11.51 Type 2 diabetes mellitus with diabetic peripheral angiopathy without gangrene; E11.42 Type 2 diabetes mellitus with diabetic polyneuropathy; E11.69 Type 2 diabetes mellitus with other specified complication; M86.672 Other chronic osteomyelitis, left ankle and foot; I48.91 Unspecified atrial fibrillation; Z89.611 Acquired absence of right leg above knee
CPT/HCPCS: A4450; A6209; G0463

== ENCOUNTER 2020-12-13 11:48 | Inpatient (IN) | payer OTHER, MEDICARE ==
[~2020-12-13] VITALS: Ht 175.3 cm; Wt 96.6 kg
[~2020-12-13 11:48] MED LIST changes: -ACET-3194 PO; -AMOX-426 PO; -APIX5TAB PO; -ASCO500T10 PO; -CALC-125 PO; -DOCU100C33 PO; -FAMO20TA8 PO; -FOLI0.8T22 PO; -GLUC1VIA14 IJ; -LACT10SO9 PO; -LIDOCAINE HCL 2% JELLY 5 ML TP ONE; -MAGN400C PO; -METF-527 PO; -METO-391 PO; -ONDA4TAB10 PO; -PIPE3.379 IV; -VANC750P13 IV; -WARF4TAB72 PO
[2020-12-13 12:22] LABS: BASOPHILS % (AUTO) 0.6 % (0.0-5.0); EOSINOPHILS % (AUTO) 2.5 % (0.0-8.0); HEMATOCRIT 28.9 % (42-54); LYMPHOCYTES % (AUTO) 24.1 % (21.0-51.0); MEAN CORPUSCULAR HEMOGLOBIN 28.7 pg (27.0-33.0); MEAN CORPUSCULAR HGB CONC 32.5 g/dL (32.0-36.0); MEAN CORPUSCULAR VOLUME 88.4 fL (79-99); NEUTROPHILS % (AUTO) 60.6 % (40.0-77.0); PLATELET COUNT (AUTO) 357 K/uL (130-400); RED BLOOD CELL COUNT(AUTO) 3.27 MIL/uL (4.50-6.20); RED CELL DISTRIBUTION WIDTH 14.7 % (11.0-15.5); WHITE BLOOD COUNT (AUTO) 8.7 K/uL (4.8-10.8)
[2020-12-13 12:23] LABS: APPEARANCE,URINE Clear (CLEAR); BILIRUBIN,URINE Negative (NEGATIVE); COLOR,URINE Yellow (YELLOW); GLUCOSE, URINE (UA) Negative (NEGATIVE); KETONES,URINE Negative (NEGATIVE); LEUKOCYTE ESTERASE ,URINE Small (NEGATIVE); NITRATE,URINE Negative (NEGATIVE); OCCULT BLOOD,URINE Trace (NEGATIVE); PH,URINE 6.5 (5.0-8.0); PROTEIN,URINE Trace mg/dL (NEGATIVE); UROBILINOGEN,URINE 0.2 mg/dL (0.2-1.0)
[2020-12-13 12:38] LABS: PARTIAL THROMBOPLASTIN TIME 57.4 SEC (26.3-35.5)
[2020-12-13 12:40] LABS: BACTERIA,URINE Rare /HPF (None Seen); SQUAMOUS EPITHELIAL CELL,UR None Seen /HPF (0-2)
[2020-12-13 12:42] LABS: INR 5.79 (0.85-1.15); PROTHROMBIN TIME 53.8 SEC (9.6-11.6)
[2020-12-13 12:44] LABS: ALBUMIN 2.3 g/dL (3.5-5.0); BILIRUBIN,TOTAL 0.4 mg/dL (0.2-1.0); CRP QUANTITATIVE 144.3 mg/L (0.00-9.0); TOTAL PROTEIN, SERUM 7.1 g/dL (6.0-8.3)
[2020-12-13 12:55] LABS: POTASSIUM 2.9 mmol/L (3.5-5.1)
[2020-12-13] MEDS ORDERED: POTASSIUM BICARB/CIT AC 25 MEQ TABLET.EFF ONE (13:18)
[2020-12-13] MEDS ORDERED: GLUCAGON 1MG KIT 1 MG ML IM PRN (14:00)
[2020-12-13] MEDS ORDERED: DEXTROSE 50%-WATER 50 ML DISP.SYRIN IV PRN (14:00)
[2020-12-13] MEDS ORDERED: POTASSIUM CHLORIDE 20MEQ/100ML 100 ML IV PRN (14:00)
[2020-12-13] MEDS ORDERED: LIDOCAINE HCL-MPF 1% 2ML VIAL IV PRN (14:00)
[2020-12-13] MEDS ORDERED: POTASSIUM CHLORIDE 10% ELIXIR 20 MEQ/15 ML UDCUP PO PRN (14:00)
[2020-12-13] MEDS ORDERED: SODIUM CHLORIDE 0.9% 1000ML 1,000 ML IV ONE ×2 (14:07→19:14)
[2020-12-13] MEDS: SODIUM CHLORIDE 0.9% 1000ML 1,000 ML IV SCH (14:15)
[2020-12-13 19:25] VITALS: BP 142/75
[2020-12-13] MEDS: POTASSIUM CHLORIDE 20MEQ/100ML 100 ML IV PRN (22:35)
[2020-12-13] MEDS: LIDOCAINE HCL-MPF 1% 2ML VIAL IV PRN (22:35)
[2020-12-13] MEDS ORDERED: CALC-125 PO ×2 (22:39)
[2020-12-13] MEDS ORDERED: GLUC1VIA14 IJ ×2 (22:39)
[2020-12-13] MEDS ORDERED: LACT10SO9 PO ×2 (22:39)
[2020-12-13] MEDS ORDERED: METO-391 PO ×2 (22:39)
[2020-12-13] MEDS ORDERED: WARF4TAB72 PO ×2 (22:39)
[2020-12-13] MEDS ORDERED: PIPE3.379 IV ×2 (22:39)
[2020-12-13] MEDS ORDERED: FOLI0.8T22 PO ×2 (22:39)
[2020-12-13] MEDS ORDERED: ONDA4TAB10 PO ×2 (22:39)
[2020-12-13] MEDS ORDERED: ACET-3194 PO ×2 (22:39)
[2020-12-13] MEDS ORDERED: METF-527 PO ×2 (22:39)
[2020-12-13] MEDS ORDERED: DOCU100C33 PO ×2 (22:39)
[2020-12-13] MEDS ORDERED: ASCO500T10 PO ×2 (22:39)
[2020-12-13] MEDS ORDERED: VANC750P13 IV ×2 (22:39)
[2020-12-13] MEDS ORDERED: FAMO20TA8 PO ×2 (22:39)
[2020-12-13] MEDS ORDERED: MAGN400C PO ×2 (22:39)
[2020-12-13 23:53] VITALS: BP 149/99
[2020-12-14] MEDS: POTASSIUM CHLORIDE 20MEQ/100ML 100 ML IV PRN (00:28)
[2020-12-14] MEDS ORDERED: ACETAMINOPHEN 325 MG TAB ONE (02:25)
[2020-12-14] MEDS ORDERED: DOCUSATE SODIUM 100 MG CAP PO PRN (02:45)
[2020-12-14] MEDS ORDERED: LACTULOSE 20 GM/30 ML UDCUP PO PRN (02:45)
[2020-12-14] MEDS ORDERED: ACETAMINOPHEN EXTENDED RELEASE 650 MG TABLET PO PRN ×2 (02:45)
[2020-12-14] MEDS ORDERED: MORPHINE SULFATE 2 MG/ML 1ML SYG IVP PRN (02:45)
[2020-12-14] MEDS ORDERED: ONDANSETRON ODT 4 MG TAB PO PRN (02:45)
[2020-12-14] MEDS ORDERED: CALCIUM CARBONATE 500 MG TABLET PO PRN (02:45)
[2020-12-14] MEDS ORDERED: GLUCAGON HCL 1 MG IJ PRN (02:45)
[2020-12-14] MEDS ORDERED: PHARMACY COMMUNICATION MISC SCH (03:00)
[2020-12-14] MEDS: SODIUM CHLORIDE 0.9% 1000ML 1,000 ML IV SCH ×2 (03:35→16:57)
[2020-12-14] MEDS ORDERED: VANCOMYCIN PROTOCOL PER PHARMACY IV SCH (04:15)
[2020-12-14 04:22] VITALS: BP 141/78
[2020-12-14] MEDS ORDERED: VANCOMYCIN 2 GM in SODIUM CHLORIDE 0.9% 500ML 500 ML IV SCH (05:00)
[2020-12-14 05:32] LABS: HEMATOCRIT 26.8 % (42-54); MEAN CORPUSCULAR HEMOGLOBIN 28.6 pg (27.0-33.0); MEAN CORPUSCULAR HGB CONC 32.8 g/dL (32.0-36.0); RED BLOOD CELL COUNT(AUTO) 3.08 MIL/uL (4.50-6.20); RED CELL DISTRIBUTION WIDTH 14.7 % (11.0-15.5); WHITE BLOOD COUNT (AUTO) 10.6 K/uL (4.8-10.8)
[2020-12-14 05:51] LABS: CREATININE 1.9 mg/dL (0.5-1.5); MAGNESIUM 1.9 mg/dL (1.80-2.40); POTASSIUM 3.2 mmol/L (3.5-5.1)
[2020-12-14 05:53] LABS: INR 5.27 (0.85-1.15); PROTHROMBIN TIME 49.4 SEC (9.6-11.6)
[2020-12-14] MEDS: MAGNESIUM 2GM PREMIX 50ML 50 ML IV PRN (06:42)
[2020-12-14] MEDS ORDERED: COMPOUND IV REFRIGERATED 1 EACH IVSOLN MISC PRN (07:30)
[2020-12-14 07:58] VITALS: BP 153/88
[2020-12-14] MEDS: METFORMIN HCL 500 MG TAB.SR.24H PO SCH (08:00)
[2020-12-14] MEDS ORDERED: HEPARIN SODIUM 5000UNIT/ML 1ML VIAL SQ SCH (09:00)
[2020-12-14] MEDS ORDERED: VANCOMYCIN 750MG + NS 250 ML IV SCH ×2 (09:00)
[2020-12-14] MEDS ORDERED: SOD CHLORIDE IV SCH (09:00)
[2020-12-14] MEDS ORDERED: ENOXAPARIN SODIUM 40 MG/0.4 ML SYRINGE SQ SCH (09:00)
[2020-12-14] MEDS ORDERED: [UNRECOGNIZED DRUG - OTHER] IV SCH (09:00)
[2020-12-14] MEDS ORDERED: [UNRECOGNIZED DRUG - OTHER] IV SCH (09:00)
[2020-12-14] MEDS ORDERED: VANCOMYCIN IV SCH (09:00)
[2020-12-14] MEDS ORDERED: PIPERACILLIN TAZO DEXTROSE ISO IV SCH (09:00)
[2020-12-14] MEDS: MAGNESIUM OXIDE 400 MG TABLET PO SCH (10:17)
[2020-12-14] MEDS: PANTOPRAZOLE 40 MG/VIAL IVP SCH (10:17)
[2020-12-14] MEDS: METOPROLOL SUCCINATE 50 MG TAB.SR.24H PO SCH (10:17)
[2020-12-14] MEDS: ASCORBIC ACID 500 MG TAB PO SCH ×2 (10:17→20:18)
[2020-12-14] MEDS: Vitamin B Complex/Vit C/Folic Acid PO SCH (10:17)
[2020-12-14] MEDS: FAMOTIDINE 20MG TAB 20 MG TAB PO SCH (10:17)
[2020-12-14 12:01] VITALS: BP 182/76
[2020-12-14] MEDS ORDERED: ZOSYN 3.375GM+NS 50ML 50 ML IV SCH (13:00)
[2020-12-14 16:00] VITALS: BP 144/56
[2020-12-14] MEDS ORDERED: WARFARIN SODIUM 2 MG TAB PO SCH (16:00)
[2020-12-14] MEDS: POTASSIUM CHLORIDE 20 MEQ ERTAB PO PRN (16:56)
[2020-12-14 19:45] VITALS: BP 142/87
[2020-12-14] MEDS: ATORVASTATIN CALCIUM 40 MG TABLET PO SCH (20:18)
[2020-12-14] MEDS: ALLOPURINOL 300 MG TABLET PO SCH (20:18)
[2020-12-14 23:04] VITALS: BP 135/50
[2020-12-15 04:15] VITALS: BP 120/88
[2020-12-15 04:33] LABS: HEMATOCRIT 26.1 % (42-54); MEAN CORPUSCULAR HEMOGLOBIN 29.2 pg (27.0-33.0); MEAN CORPUSCULAR HGB CONC 33.3 g/dL (32.0-36.0); MEAN CORPUSCULAR VOLUME 87.6 fL (79-99); RED BLOOD CELL COUNT(AUTO) 2.98 MIL/uL (4.50-6.20); RED CELL DISTRIBUTION WIDTH 14.8 % (11.0-15.5); WHITE BLOOD COUNT (AUTO) 11.9 K/uL (4.8-10.8)
[2020-12-15 04:49] LABS: ALBUMIN 2.1 g/dL (3.5-5.0); BILIRUBIN,TOTAL 0.6 mg/dL (0.2-1.0); CREATININE 1.8 mg/dL (0.5-1.5); MAGNESIUM 2.5 mg/dL (1.80-2.40); POTASSIUM 3.5 mmol/L (3.5-5.1); TOTAL PROTEIN, SERUM 6.7 g/dL (6.0-8.3)
[2020-12-15 04:55] LABS: CRP QUANTITATIVE 273.3 mg/L (0.00-9.0)
[2020-12-15 05:10] LABS: PROTHROMBIN TIME 58.7 SEC (9.6-11.6)
[2020-12-15 05:11] LABS: INR 6.37 (0.85-1.15)
[2020-12-15] MEDS: SODIUM CHLORIDE 0.9% 1000ML 1,000 ML IV SCH ×2 (05:30→09:55)
[2020-12-15 07:00] VITALS: BP 142/73
[2020-12-15] MEDS ORDERED: PHYTONADIONE 10 MG/1 ML AMP SQ SCH ×2 (07:30→18:45)
[2020-12-15] MEDS: METOPROLOL SUCCINATE 50 MG TAB.SR.24H PO SCH (09:54)
[2020-12-15] MEDS: PANTOPRAZOLE 40 MG/VIAL IVP SCH (09:54)
[2020-12-15] MEDS: FAMOTIDINE 20MG TAB 20 MG TAB PO SCH (09:54)
[2020-12-15] MEDS: ASCORBIC ACID 500 MG TAB PO SCH ×2 (09:55→20:11)
[2020-12-15] MEDS: MAGNESIUM OXIDE 400 MG TABLET PO SCH (09:55)
[2020-12-15] MEDS: Vitamin B Complex/Vit C/Folic Acid PO SCH (09:55)
[2020-12-15] MEDS: METFORMIN HCL 500 MG TAB.SR.24H PO SCH (09:55)
[2020-12-15 11:30] VITALS: BP 145/73
[2020-12-15 16:00] VITALS: BP 146/65
[2020-12-15 20:00] VITALS: BP 154/73
[2020-12-15] MEDS: ATORVASTATIN CALCIUM 40 MG TABLET PO SCH (20:11)
[2020-12-15] MEDS: ALLOPURINOL 300 MG TABLET PO SCH (20:11)
[2020-12-16] VITALS: BP 149/53
[2020-12-16 04:00] VITALS: BP 136/55
[2020-12-16 04:04] LABS: HEMATOCRIT 24.9 % (42-54); MEAN CORPUSCULAR HEMOGLOBIN 28.5 pg (27.0-33.0); MEAN CORPUSCULAR HGB CONC 32.9 g/dL (32.0-36.0); MEAN CORPUSCULAR VOLUME 86.5 fL (79-99); RED BLOOD CELL COUNT(AUTO) 2.88 MIL/uL (4.50-6.20); RED CELL DISTRIBUTION WIDTH 14.7 % (11.0-15.5); WHITE BLOOD COUNT (AUTO) 10.6 K/uL (4.8-10.8)
[2020-12-16 04:47] LABS: INR 6.55 (0.85-1.15); PROTHROMBIN TIME 60.2 SEC (9.6-11.6)
[2020-12-16 04:49] LABS: ALBUMIN 2.1 g/dL (3.5-5.0); BILIRUBIN,DIRECT 0.2 mg/dL (0.0-0.3); BILIRUBIN,TOTAL 0.5 mg/dL (0.2-1.0); CREATININE 1.6 mg/dL (0.5-1.5); MAGNESIUM 1.6 mg/dL (1.80-2.40)
[2020-12-16] MEDS: LIDOCAINE HCL-MPF 1% 2ML VIAL IV PRN (05:05)
[2020-12-16] MEDS: POTASSIUM CHLORIDE 20MEQ/100ML 100 ML IV PRN (05:05)
[2020-12-16 05:06] LABS: CRP QUANTITATIVE 256.7 mg/L (0.00-9.0)
[2020-12-16] MEDS: MAGNESIUM 2GM PREMIX 50ML 50 ML IV PRN (05:06)
[2020-12-16 08:00] VITALS: BP 137/61
[2020-12-16] MEDS: METOPROLOL SUCCINATE 50 MG TAB.SR.24H PO SCH (09:00)
[2020-12-16] MEDS: PANTOPRAZOLE 40 MG/VIAL IVP SCH (09:00)
[2020-12-16] MEDS: MAGNESIUM OXIDE 400 MG TABLET PO SCH (09:00)
[2020-12-16] MEDS: Vitamin B Complex/Vit C/Folic Acid PO SCH (09:00)
[2020-12-16] MEDS: FAMOTIDINE 20MG TAB 20 MG TAB PO SCH (09:00)
[2020-12-16] MEDS: ASCORBIC ACID 500 MG TAB PO SCH ×2 (09:00→20:44)
[2020-12-16] MEDS: POTASSIUM CHLORIDE 20 MEQ ERTAB PO PRN ×4 (09:08→18:08)
[2020-12-16] MEDS ORDERED: MAGNESIUM 2GM PREMIX 50ML 50 ML IV SCH (09:15)
[2020-12-16] MEDS: METFORMIN HCL 500 MG TAB.SR.24H PO SCH (10:20)
[2020-12-16] MEDS: CEFEPIME HCL 2 GM VIAL IVP SCH ×2 (10:21→20:43)
[2020-12-16 11:51] VITALS: BP 152/74
[2020-12-16] MEDS ORDERED: PHARMACY COMMUNICATION MISC SCH (14:45)
[2020-12-16] MEDS ORDERED: PHYTONADIONE 10 MG in SODIUM CHLORIDE 0.9% 50 ML SQ SCH (15:00)
[2020-12-16] MEDS: METRONIDAZOLE 500MG/100ML BAG 100 ML IVPB SCH ×2 (15:41→23:15)
[2020-12-16 16:00] VITALS: BP 107/80
[2020-12-16] MEDS: SODIUM CHLORIDE 0.9% 1000ML 1,000 ML IV SCH ×2 (18:35→22:15)
[2020-12-16 20:00] VITALS: BP 126/51
[2020-12-16] MEDS: ALLOPURINOL 300 MG TABLET PO SCH (20:44)
[2020-12-16] MEDS: ATORVASTATIN CALCIUM 40 MG TABLET PO SCH (20:44)
[2020-12-17] VITALS: BP 154/90
[2020-12-17 04:00] VITALS: BP 112/88
[2020-12-17 05:26] LABS: MEAN CORPUSCULAR HEMOGLOBIN 28.5 pg (27.0-33.0); MEAN CORPUSCULAR HGB CONC 32.8 g/dL (32.0-36.0); MEAN CORPUSCULAR VOLUME 86.8 fL (79-99); RED BLOOD CELL COUNT(AUTO) 2.88 MIL/uL (4.50-6.20); RED CELL DISTRIBUTION WIDTH 14.5 % (11.0-15.5); WHITE BLOOD COUNT (AUTO) 9.1 K/uL (4.8-10.8)
[2020-12-17 05:32] LABS: INR 1.36 (0.85-1.15); PROTHROMBIN TIME 14.4 SEC (9.6-11.6)
[2020-12-17 06:03] LABS: % IRON SATURATION 18.9 % (30-44)
[2020-12-17] MEDS: METRONIDAZOLE 500MG/100ML BAG 100 ML IVPB SCH ×2 (06:44→14:16)
[2020-12-17 08:00] VITALS: BP 144/70
[2020-12-17] MEDS: ASCORBIC ACID 500 MG TAB PO SCH (09:03)
[2020-12-17] MEDS: CEFEPIME HCL 2 GM VIAL IVP SCH (09:03)
[2020-12-17] MEDS: METFORMIN HCL 500 MG TAB.SR.24H PO SCH (09:03)
[2020-12-17] MEDS: FAMOTIDINE 20MG TAB 20 MG TAB PO SCH (09:03)
[2020-12-17] MEDS: Vitamin B Complex/Vit C/Folic Acid PO SCH (09:03)
[2020-12-17] MEDS: MAGNESIUM OXIDE 400 MG TABLET PO SCH (09:03)
[2020-12-17] MEDS: PANTOPRAZOLE 40 MG/VIAL IVP SCH (09:03)
[2020-12-17] MEDS: METOPROLOL SUCCINATE 50 MG TAB.SR.24H PO SCH (09:04)
[2020-12-17 11:44] VITALS: BP 110/72
[2020-12-17 12:10] LABS: CREATININE 1.7 mg/dL (0.5-1.5); POTASSIUM 3.3 mmol/L (3.5-5.1)
[2020-12-17] MEDS: SODIUM CHLORIDE 0.9% 1000ML 1,000 ML IV SCH (12:27)
[2020-12-17 15:33] VITALS: BP 138/70
[2020-12-17] MEDS ORDERED: AMOX-426 PO ×2 (16:48)
[2020-12-17] MEDS ORDERED: APIX5TAB PO ×2 (16:48)
[2020-12-17] MEDS ORDERED: APIXABAN 5 MG TABLET PO SCH (21:00)
[2020-12-18] MEDS ORDERED: FERROUS GLUCONATE 325 MG TABLET PO SCH (09:00)
== END 2020-12-17 19:15 | DRG 689 ==
LOC: EDH 11:48 → OBSVTOIN 14:03 → EDHIP 14:03 → 3CH 19:31
PROVIDERS: ADMIT Internal Medicine; ATTEND Internal Medicine
DX: N39.0 Urinary tract infection, site not specified (principal); G93.41 Metabolic encephalopathy; I48.20 Chronic atrial fibrillation, unspecified; I82.602 Acute embolism and thrombosis of unspecified veins of left upper extremity; E87.6 Hypokalemia; I12.9 Hypertensive chronic kidney disease with stage 1 through stage 4 chronic kidney disease, or unspecified chronic kidney disease; E11.51 Type 2 diabetes mellitus with diabetic peripheral angiopathy without gangrene; E11.40 Type 2 diabetes mellitus with diabetic neuropathy, unspecified; E11.22 Type 2 diabetes mellitus with diabetic chronic kidney disease; N18.9 Chronic kidney disease, unspecified; Z20.822 Contact with and (suspected) exposure to COVID-19; D50.9 Iron deficiency anemia, unspecified; D63.8 Anemia in other chronic diseases classified elsewhere; E11.621 Type 2 diabetes mellitus with foot ulcer; E66.9 Obesity, unspecified; E78.5 Hyperlipidemia, unspecified; I25.10 Atherosclerotic heart disease of native coronary artery without angina pectoris; L97.529 Non-pressure chronic ulcer of other part of left foot with unspecified severity; M17.12 Unilateral primary osteoarthritis, left knee; R79.1 Abnormal coagulation profile; Z96.652 Presence of left artificial knee joint; Z79.01 Long term (current) use of anticoagulants; Z79.899 Other long term (current) drug therapy; Z89.511 Acquired absence of right leg below knee; Z86.73 Personal history of transient ischemic attack (TIA), and cerebral infarction without residual deficits
CPT/HCPCS: 36415; 70450; 71045; 73100; 73630; 74176; 80048; 80053; 80076; 81001; 82140; 82550; 82948; 83540; 83550; 83605; 83690; 83735; 84145; 84484; 85025; 85027; 85378; 85610; 85730; 86140; 86850; 86900; 86901; 87040; 87088; 87426; 87804; 87880; 92526; 92610; 93005; 93971; 97039; 99291; C9113; G0378; J0692; J1644; J2543; J3370; J3430; J3475; J3480; J3490; J7030; J7040; J7050; U0003

== ENCOUNTER 2020-12-22 09:50 | Observation (INO) | payer OTHER, MEDICARE ==
[~2020-12-22] VITALS: Ht 175.3 cm; Wt 91.1 kg
[~2020-12-22 09:50] MED LIST changes: +ACET-3194 PO; +AMOX-426 PO; +APIX5TAB PO; +ASCO500T10 PO; +CALC-125 PO; +DOCU100C33 PO; +FAMO20TA8 PO; +FOLI0.8T22 PO; +GLUC1VIA14 IJ; +LACT10SO9 PO; +MAGN400C PO; +METF-527 PO; +METO-391 PO; +ONDA4TAB10 PO
[2020-12-22] MEDS ORDERED: ENOXAPARIN SODIUM 80 MG/0.8 ML SQ ONE (10:06)
[2020-12-22] MEDS ORDERED: METOPROLOL TARTRATE 1 MG/ML 5ML VIAL IV ONE (10:06)
[2020-12-22 10:11] LABS: BASOPHILS % (AUTO) 0.2 % (0.0-5.0); EOSINOPHILS % (AUTO) 1.4 % (0.0-8.0); HEMATOCRIT 28.2 % (42-54); LYMPHOCYTES % (AUTO) 16.2 % (21.0-51.0); MEAN CORPUSCULAR HEMOGLOBIN 28.3 pg (27.0-33.0); MEAN CORPUSCULAR HGB CONC 32.3 g/dL (32.0-36.0); MEAN CORPUSCULAR VOLUME 87.6 fL (79-99); MONOCYTES % (AUTO) 7.8 % (3.0-13.0); NEUTROPHILS % (AUTO) 73.9 % (40.0-77.0); PLATELET COUNT (AUTO) 475 K/uL (130-400); RED BLOOD CELL COUNT(AUTO) 3.22 MIL/uL (4.50-6.20); RED CELL DISTRIBUTION WIDTH 15.9 % (11.0-15.5); WHITE BLOOD COUNT (AUTO) 14.6 K/uL (4.8-10.8)
[2020-12-22 10:25] LABS: INR 1.34 (0.85-1.15); PROTHROMBIN TIME 14.2 SEC (9.6-11.6)
[2020-12-22 10:26] LABS: PARTIAL THROMBOPLASTIN TIME 32.6 SEC (26.3-35.5)
[2020-12-22 10:29] LABS: CREATININE 1.5 mg/dL (0.5-1.5); POTASSIUM 3.2 mmol/L (3.5-5.1)
[2020-12-22 10:33] LABS: ALBUMIN 2.3 g/dL (3.5-5.0); BILIRUBIN,TOTAL 0.4 mg/dL (0.2-1.0); TOTAL PROTEIN, SERUM 7.2 g/dL (6.0-8.3)
[2020-12-22 10:50] LABS: B-TYPE NATRIURETIC PEPTIDE 161 pg/mL (0-100)
[2020-12-22 13:20] LABS: APPEARANCE,URINE Cloudy (CLEAR); BILIRUBIN,URINE Small (NEGATIVE); COLOR,URINE Orange (YELLOW); GLUCOSE, URINE (UA) Negative (NEGATIVE); KETONES,URINE Trace mg/dL (NEGATIVE); LEUKOCYTE ESTERASE ,URINE Moderate (NEGATIVE); NITRATE,URINE Negative (NEGATIVE); OCCULT BLOOD,URINE Large (NEGATIVE); PH,URINE 5.5 (5.0-8.0); PROTEIN,URINE 300 mg/dL (NEGATIVE); UROBILINOGEN,URINE 0.2 mg/dL (0.2-1.0)
[2020-12-22 13:29] LABS: BACTERIA,URINE Few /HPF (None Seen); RBC,URINE TNTC /HPF (0-1)
[2020-12-22] MEDS ORDERED: CLONIDINE HCL 0.1 MG TABLET PO PRN (15:45)
[2020-12-22] MEDS ORDERED: VANCOMYCIN KIT 1 GM/250 ML IV.KIT IV SCH (15:45)
[2020-12-22] MEDS ORDERED: VANCOMYCIN PROTOCOL PER PHARMACY IV SCH (15:45)
[2020-12-22] MEDS ORDERED: LIDOCAINE HCL-MPF 1% 2ML VIAL IV PRN (15:45)
[2020-12-22] MEDS ORDERED: ACETAMINOPHEN 650 MG SUPPOSITORY RC PRN (15:45)
[2020-12-22] MEDS ORDERED: DEXTROSE 50%-WATER 50 ML DISP.SYRIN IV PRN (15:45)
[2020-12-22] MEDS ORDERED: ONDANSETRON 4MG INJ IVP PRN (15:45)
[2020-12-22] MEDS ORDERED: POTASSIUM CHLORIDE 10% ELIXIR 20 MEQ/15 ML UDCUP PO PRN (15:45)
[2020-12-22] MEDS ORDERED: POTASSIUM CHLORIDE 20MEQ/100ML 100 ML IV PRN (15:45)
[2020-12-22] MEDS ORDERED: TEMAZEPAM 15 MG CAPSULE PO PRN (15:45)
[2020-12-22] MEDS ORDERED: ASPIRIN 325 MG TABLET PO ONE (15:45)
[2020-12-22] MEDS ORDERED: GLUCAGON 1MG KIT 1 MG ML IM PRN (15:45)
[2020-12-22] MEDS ORDERED: DOCUSATE SODIUM 100 MG CAP PO PRN (15:45)
[2020-12-22] MEDS ORDERED: ACETAMINOPHEN 325 MG TAB PO PRN (15:45)
[2020-12-22] MEDS ORDERED: COMPOUND IV REFRIGERATED 1 EACH IVSOLN MISC PRN (16:00)
[2020-12-22] MEDS ORDERED: VANCOMYCIN 1G 2 GM in 0.9% NACL 500ML IV.SOLN 500 ML IV ONE (16:00)
[2020-12-22] MEDS: METOCLOPRAMIDE 5 MG TABLET PO SCH ×2 (16:30→21:00)
[2020-12-22] MEDS ORDERED: ZOSYN 3.375GM+NS 50ML 50 ML IV ONE (16:39)
[2020-12-22] MEDS ORDERED: METOCLOPRAMIDE 10 MG TABLET ONE (16:39)
[2020-12-22] MEDS ORDERED: POTASSIUM CHLORIDE 10% ELIXIR 20 MEQ/15 ML UDCUP ONE ×2 (16:39→18:41)
[2020-12-22 17:25] LABS: CREATINE KINASE, TOTAL 15 U/L (21-232); MYOGLOBIN 34 ng/mL (10-92); TROPONIN I < 0.04 ng/mL (0.00-0.06)
[2020-12-22] MEDS ORDERED: ENOXAPARIN SODIUM 100 MG/1 ML SQ ONE (19:57)
[2020-12-22] MEDS ORDERED: KCL 20 MEQ ERTAB PO ONE (19:58)
[2020-12-22] MEDS ORDERED: METOCLOPRAMIDE 5 MG TABLET ONE (19:58)
[2020-12-22] MEDS ORDERED: ZOSYN 3.375GM +NS 50ML IV SCH (21:00)
[2020-12-22] MEDS: ENOXAPARIN SODIUM 100 MG/1 ML SQ SCH (21:00)
[2020-12-22] MEDS: ZOSYN 3.375GM+NS 50ML 50 ML IV SCH (21:00)
[2020-12-22] MEDS: INSULIN HUMULIN R 100 UNIT/ML 3ML SQ SCH (21:00)
[2020-12-22 22:37] LABS: CREATINE KINASE, TOTAL 13 U/L (21-232); MYOGLOBIN 36 ng/mL (10-92); TROPONIN I < 0.04 ng/mL (0.00-0.06)
[2020-12-22 23:30] VITALS: BP 118/78
[2020-12-22 23:54] VITALS: BP 113/65
[2020-12-23 03:46] VITALS: BP 103/68
[2020-12-23] MEDS ORDERED: FERR324T23 PO (03:47)
[2020-12-23] MEDS ORDERED: GLUC1KIT3 IM (03:47)
[2020-12-23] MEDS ORDERED: DOCU-116 PO (03:47)
[2020-12-23] MEDS ORDERED: LACT10SO9 PO (03:47)
[2020-12-23] MEDS ORDERED: LEVO750T46 PO (03:47)
[2020-12-23] MEDS ORDERED: METR500T PO (03:47)
[2020-12-23] MEDS ORDERED: 0.9% NACL 250ML 250 ML IV ONE (05:16)
[2020-12-23] MEDS: ZOSYN 3.375GM+NS 50ML 50 ML IV SCH ×2 (05:21→12:11)
[2020-12-23 05:34] LABS: BASOPHILS % (AUTO) 0.2 % (0.0-5.0); EOSINOPHILS % (AUTO) 1.3 % (0.0-8.0); HEMATOCRIT 29.4 % (42-54); LYMPHOCYTES % (AUTO) 17.2 % (21.0-51.0); MEAN CORPUSCULAR HEMOGLOBIN 27.3 pg (27.0-33.0); MEAN CORPUSCULAR VOLUME 88.3 fL (79-99); MONOCYTES % (AUTO) 9.5 % (3.0-13.0); NEUTROPHILS % (AUTO) 71.1 % (40.0-77.0); PLATELET COUNT (AUTO) 467 K/uL (130-400); RED BLOOD CELL COUNT(AUTO) 3.33 MIL/uL (4.50-6.20); RED CELL DISTRIBUTION WIDTH 16.2 % (11.0-15.5)
[2020-12-23 06:00] LABS: CARBON DIOXIDE 27 mmol/L (21-32); CHLORIDE 102 mmol/L (101-111); CREATINE KINASE, TOTAL 13 U/L (21-232); CREATININE 1.5 mg/dL (0.5-1.5); GLOMERULAR FILTR. RATE CALC 48 mL/min (>60); GLUCOSE,RANDOM 119 mg/dL (70-105); MYOGLOBIN 36 ng/mL (10-92); PHOSPHORUS 3.7 mg/dL (2.5-4.9); POTASSIUM 3.6 mmol/L (3.5-5.1); SODIUM SERUM 138 mmol/L (136-145); TROPONIN I < 0.04 ng/mL (0.00-0.06); UREA NITROGEN, BLOOD 15 mg/dL (7-18)
[2020-12-23] MEDS ORDERED: VANCOMYCIN 500MG+NS 100ML 100 ML IV SCH (06:00)
[2020-12-23] MEDS: INSULIN HUMULIN R 100 UNIT/ML 3ML SQ SCH ×4 (07:30→21:00)
[2020-12-23 08:19] VITALS: BP 91/54
[2020-12-23] MEDS ORDERED: FLU VACC QS2020-21(6MOS UP)/PF 60 MCG/0.5 ML ML IM ONE ×3 (09:00→20:06)
[2020-12-23] MEDS ORDERED: PNEUMOCOCCAL VACCINE POLYVALENT 0.5 ML/VIAL [PPV] IM ONE ×2 (09:00→20:06)
[2020-12-23] MEDS ORDERED: MAGNESIUM 2GM PREMIX 50ML 50 ML IV SCH (11:30)
[2020-12-23] MEDS: METOCLOPRAMIDE 5 MG TABLET PO SCH ×4 (11:30→21:41)
[2020-12-23 11:34] VITALS: BP 141/51
[2020-12-23] MEDS: PANTOPRAZOLE 40 MG TAB DR PO SCH (12:09)
[2020-12-23] MEDS: ASPIRIN 81MG CHEW TAB PO SCH (12:09)
[2020-12-23] MEDS: POLYETHYLENE GLYCOL 3350 17 GM POWD.PACK PO SCH (12:10)
[2020-12-23] MEDS: ENOXAPARIN SODIUM 100 MG/1 ML SQ SCH (12:10)
[2020-12-23] MEDS: KCL 20 MEQ ERTAB PO PRN ×2 (12:10→17:05)
[2020-12-23] MEDS ORDERED: MAGNESIUM 2GM PREMIX 50ML 50 ML IV ONE (12:13)
[2020-12-23 16:32] VITALS: BP 131/85
[2020-12-23] MEDS: MEROPENEM 1 GM VIAL IVP SCH ×2 (17:06→21:41)
[2020-12-23] MEDS ORDERED: PNEUMOCOCCAL VACCINE POLYVALENT 0.5 ML/VIAL [PPV] IM SCH (18:30)
[2020-12-23] MEDS: ALLOPURINOL 300 MG TABLET PO SCH (21:41)
[2020-12-23] MEDS: DOCUSATE SODIUM 100 MG CAP PO SCH (21:41)
[2020-12-23] MEDS: ATORVASTATIN 40 MG TABLET PO SCH (21:41)
[2020-12-23] MEDS: APIXABAN 5 MG TABLET PO SCH (21:42)
[2020-12-23 21:43] VITALS: BP 117/71
[2020-12-24 00:27] VITALS: BP 113/68
[2020-12-24 05:19] LABS: HEMATOCRIT 27.8 % (42-54); MEAN CORPUSCULAR HEMOGLOBIN 28.4 pg (27.0-33.0); MEAN CORPUSCULAR HGB CONC 32.4 g/dL (32.0-36.0); MEAN CORPUSCULAR VOLUME 87.7 fL (79-99); RED BLOOD CELL COUNT(AUTO) 3.17 MIL/uL (4.50-6.20); RED CELL DISTRIBUTION WIDTH 16.7 % (11.0-15.5); WHITE BLOOD COUNT (AUTO) 11.9 K/uL (4.8-10.8)
[2020-12-24 05:33] LABS: CREATININE 1.6 mg/dL (0.5-1.5); MAGNESIUM 1.6 mg/dL (1.80-2.40); POTASSIUM 3.8 mmol/L (3.5-5.1)
[2020-12-24 05:42] VITALS: BP 114/78
[2020-12-24] MEDS: INSULIN HUMULIN R 100 UNIT/ML 3ML SQ SCH ×4 (05:42→20:42)
[2020-12-24] MEDS: METOCLOPRAMIDE 5 MG TABLET PO SCH ×4 (05:45→20:43)
[2020-12-24 07:30] VITALS: BP 134/81
[2020-12-24] MEDS: POLYETHYLENE GLYCOL 3350 17 GM POWD.PACK PO SCH (09:00)
[2020-12-24] MEDS ORDERED: NON-FORMULARY MEDICATION 1 EACH (Folic Acid/Vitamin B Comp W-C (Rena-Vite Tablet) 0.8 MG) PO SCH (09:00)
[2020-12-24 11:00] VITALS: BP 132/82
[2020-12-24] MEDS: KCL 20 MEQ ERTAB PO PRN ×2 (11:50→17:58)
[2020-12-24] MEDS: METOPROLOL SUCCINATE 50 MG TAB.SR.24H PO SCH (11:51)
[2020-12-24] MEDS: PANTOPRAZOLE 40 MG TAB DR PO SCH (11:51)
[2020-12-24] MEDS: DOCUSATE SODIUM 100 MG CAP PO SCH ×2 (11:51→20:41)
[2020-12-24] MEDS: APIXABAN 5 MG TABLET PO SCH ×2 (11:52→20:41)
[2020-12-24] MEDS: ASPIRIN 81MG CHEW TAB PO SCH (11:52)
[2020-12-24] MEDS: Vitamin B Complex/Vit C/Folic Acid PO SCH (11:52)
[2020-12-24 16:00] VITALS: BP 123/72
[2020-12-24] MEDS: HONEY 1 APPL/ML TUBE TP SCH (17:52)
[2020-12-24] MEDS: MEROPENEM 1 GM VIAL IVP SCH (17:52)
[2020-12-24 20:00] VITALS: BP 115/76
[2020-12-24] MEDS: ATORVASTATIN 40 MG TABLET PO SCH (20:41)
[2020-12-24] MEDS: ALLOPURINOL 300 MG TABLET PO SCH (20:43)
[2020-12-25] VITALS: BP 147/66
[2020-12-25 03:47] VITALS: BP 142/80
[2020-12-25 05:18] LABS: HEMATOCRIT 27.6 % (42-54); MEAN CORPUSCULAR HEMOGLOBIN 28.2 pg (27.0-33.0); MEAN CORPUSCULAR HGB CONC 32.6 g/dL (32.0-36.0); MEAN CORPUSCULAR VOLUME 86.5 fL (79-99); RED BLOOD CELL COUNT(AUTO) 3.19 MIL/uL (4.50-6.20); RED CELL DISTRIBUTION WIDTH 16.8 % (11.0-15.5)
[2020-12-25 05:32] LABS: CREATININE 1.3 mg/dL (0.5-1.5); MAGNESIUM 1.8 mg/dL (1.80-2.40); POTASSIUM 4.1 mmol/L (3.5-5.1)
[2020-12-25] MEDS: INSULIN HUMULIN R 100 UNIT/ML 3ML SQ SCH ×2 (06:04→11:30)
[2020-12-25] MEDS: MEROPENEM 1 GM VIAL IVP SCH ×2 (06:09→16:31)
[2020-12-25] MEDS: METOCLOPRAMIDE 5 MG TABLET PO SCH ×3 (06:09→16:31)
[2020-12-25 08:00] VITALS: BP 126/77
[2020-12-25] MEDS: Vitamin B Complex/Vit C/Folic Acid PO SCH (09:21)
[2020-12-25] MEDS: DOCUSATE SODIUM 100 MG CAP PO SCH (09:21)
[2020-12-25] MEDS: METOPROLOL SUCCINATE 50 MG TAB.SR.24H PO SCH (09:21)
[2020-12-25] MEDS: PANTOPRAZOLE 40 MG TAB DR PO SCH (09:21)
[2020-12-25] MEDS: POLYETHYLENE GLYCOL 3350 17 GM POWD.PACK PO SCH (09:22)
[2020-12-25] MEDS: HONEY 1 APPL/ML TUBE TP SCH (09:22)
[2020-12-25] MEDS: ASPIRIN 81MG CHEW TAB PO SCH (09:22)
[2020-12-25] MEDS: APIXABAN 5 MG TABLET PO SCH (09:22)
[2020-12-25 12:00] VITALS: BP 114/74
[2020-12-25] MEDS ORDERED: MERO1VIA23 IV (17:56)
[2020-12-25 19:31] VITALS: BP 132/85
[2021-01-09] MEDS ORDERED: GLIP5TAB11 PO (02:56)
[2021-01-09] MEDS ORDERED: LISI1TAB49 PO (02:56)
[2021-01-15] MEDS ORDERED: CEPH750C9 PO (16:30)
[2021-01-15] MEDS ORDERED: TAMS-1 PO (16:30)
== END 2020-12-25 20:07 ==
LOC: EDH 09:50 → EDHIP 15:31 → 4CH 22:04
PROVIDERS: ADMIT Internal Medicine Critical Care Medicine; ATTEND Internal Medicine Critical Care Medicine
DX: R07.89 Other chest pain (principal); Z20.822 Contact with and (suspected) exposure to COVID-19; L08.9 Local infection of the skin and subcutaneous tissue, unspecified; E11.51 Type 2 diabetes mellitus with diabetic peripheral angiopathy without gangrene; N39.0 Urinary tract infection, site not specified; I12.9 Hypertensive chronic kidney disease with stage 1 through stage 4 chronic kidney disease, or unspecified chronic kidney disease; E11.22 Type 2 diabetes mellitus with diabetic chronic kidney disease; E11.21 Type 2 diabetes mellitus with diabetic nephropathy; N18.9 Chronic kidney disease, unspecified; R79.89 Other specified abnormal findings of blood chemistry; D64.9 Anemia, unspecified; I48.20 Chronic atrial fibrillation, unspecified; E11.42 Type 2 diabetes mellitus with diabetic polyneuropathy; E78.5 Hyperlipidemia, unspecified; E66.01 Morbid (severe) obesity due to excess calories; M19.079 Primary osteoarthritis, unspecified ankle and foot; M06.9 Rheumatoid arthritis, unspecified; Z23 Encounter for immunization; Z86.73 Personal history of transient ischemic attack (TIA), and cerebral infarction without residual deficits; Z89.511 Acquired absence of right leg below knee; Z79.01 Long term (current) use of anticoagulants; Z79.899 Other long term (current) drug therapy; Z68.29 Body mass index [BMI] 29.0-29.9, adult
CPT/HCPCS: 36415 ×4; 71045 ×2; 73620; 78582; 80048 ×3; 80053; 81001; 82550 ×4; 82948 ×14; 83605; 83735 ×3; 83874 ×3; 83880; 84100; 84145; 84484 ×4; 85025 ×2; 85027 ×2; 85378; 85610; 85651; 85730; 86140; 87040 ×2; 87088; 87426; 90471; 90472; 90732; 93005 ×2; 93306; 94660 ×3; 96365; 96366 ×3; 96367; 96368; 96372 ×2; 96375; 96376 ×3; 97039; 97164; 97530; 99285; A9540; A9558; G0378 ×73; G8981; G8982; G8983; J1650 ×3; J1815; J2185 ×5; J2543 ×3; J3370 ×2; J3475 ×2; J3490; J7040; J7050; Q2035; U0003

== ENCOUNTER → 2021-07-21 | Outpatient (CLI) | payer OTHER, MEDICARE ==
[~2021-07-21] MED LIST changes: -AMOX-426 PO; -ASCO500T10 PO; +CEPH750C9 PO; +DOCU-116 PO; +FERR324T23 PO; -FOLI0.8T22 PO; +GLIP5TAB11 PO; +GLUC1KIT3 IM; +LISI1TAB32 PO; -MAGN400C PO; +TAMS-1 PO
== END | disposition home or self-care (01) ==
LOC: RAH 14:00
PROVIDERS: ATTEND Podiatrist
DX: I70.202 Unspecified atherosclerosis of native arteries of extremities, left leg (principal); E11.621 Type 2 diabetes mellitus with foot ulcer; E11.51 Type 2 diabetes mellitus with diabetic peripheral angiopathy without gangrene; L97.529 Non-pressure chronic ulcer of other part of left foot with unspecified severity; Z89.431 Acquired absence of right foot
CPT/HCPCS: 93922